=== PATIENT | female | born 1930 | race Caucasian/White ===

== ENCOUNTER 2017-11-02 19:21 | Inpatient (IN) ==
[2017-11-02 19:52] LABS: Basophils % 0.6 % (0.1-2.0); Eosinophils # 0.2 K/mm3 (0.0-0.4); Eosinophils % 2.8 % (0.1-12.0); Hematocrit 38.6 % (37.0-47.0); Hemoglobin 12.3 g/dL (12.2-16.2); Lymphocytes % 28.2 K/mm3 (10-50); Mean Corpuscular HGB Conc 31.9 g/dL (31.8-35.4); Mean Corpuscular Volume 94.1 fl (81-99); Mean Platelet Volume 7.2 fl (7.4-10.4); Monocytes # 0.5 K/mm3 (0.1-1.0); Monocytes % 7.4 % (1.7-9.3); Neutrophils # 4.4 K/mm3 (1.8-7.8); Platelet Count 147 K/mm3 (142-424); Red Cell Distribution Width 13.5 % (11.5-17.5); White Blood Count 7.1 K/mm3 (4.8-10.8)
[2017-11-02 20:00] LABS: Albumin Level 3.8 gm/dL (3.4-5.0); Albumin/Globulin Ratio 1.2 (1.1-1.8); Bilirubin,Total 0.2 mg/dL (0.2-1.0); Calcium 8.7 mg/dL (8.5-10.1); Globulin 3.1 gm/dl (1.3-3.2); Total Protein,Serum 6.9 gm/dL (6.4-8.2)
--- NOTE | 2017-11-02 21:14 | Emergency Department Note ---
ED Disposition Clinical Impression: Hip fx Qualifiers: Encounter type: initial encounter Fracture type: closed Laterality: left Qualified Code(s): S72.002A - Fracture of unspecified part of neck of left femur, initial encounter for closed fracture COPD (chronic obstructive pulmonary disease) Qualifiers: COPD type: unspecified COPD Qualified Code(s): J44.9 - Chronic obstructive pulmonary disease, unspecified Fall Qualifiers: Encounter type: initial encounter Qualified Code(s): W19.XXXA - Unspecified fall, initial encounter Hypothyroidism Qualifiers: Hypothyroidism type: acquired Qualified Code(s): E03.9 - Hypothyroidism, unspecified Disposition: Admitted As Inpatient Condition on Discharge: Good - Critical Care Critical Care Time: No Attestation: On 11/02/17, the high probability of a clinically significant, sudden or life threatening deterioration of the following system(s) required my full and direct attention, intervention and personal management. The time I documented below is in addition to time spent performing reported procedures but includes the following listed in this critical care notation. Medical Decision Making - Medical Records Medical records reviewed: Yes: I reviewed the patient's medical records. - Reg Inquiry Pt receiving controlled substance: No Vital Signs: 11/02/17 19:22 11/02/17 20:00 11/02/17 20:55 Temperature 98.9 F 97.9 F 97.5 F L Temperature Source Oral Oral Oral Pulse Rate [Right Brachial] 78 84 83 Respiratory Rate 18 16 18 Blood Pressure [Right Arm] 145/95 121/79 137/74 Blood Pressure Mean [Right Arm] 111 93 95 Blood Pressure Source [Right Arm] Automatic Cuff Blood Pressure Position [Right Arm] Supine 02 Sat by Pulse Oximetry 100 98 96 Oxygen Delivery Method Nasal Cannula Oxygen Flow Rate (LPM) 2 - Lab Data Lab results reviewed: Yes: I reviewed the patient's lab results. Lab Results 11/02/17 19:20: WBC 7.1, RBC 4.10 L, Hgb 12.3, Hct 38.6, MCV 94.1, MCH 30.0, MCHC 31.9, RDW 13.5, Plt Count 147, MPV 7.2 L, Neut % (Auto) 61.0, Lymph % (Auto) 28.2, [place] % (Auto) 7.4, Eos % (Auto) 2.8, Baso % (Auto) 0.6, Neut # (Auto) 4.4, Lymph # (Auto) 2.0, [place] # (Auto) 0.5, Eos # (Auto) 0.2, Baso # (Auto) 0.0 11/02/17 19:20: Sodium 143, Potassium 4.0, Chloride 103, Carbon Dioxide 37 H, Anion Gap 7.0, BUN 16, Creatinine 0.77, Estimated Creat Clear 31, Estimated GFR 71, Est GFR ( Amer) 86, Glucose 123 H, Calcium 8.7, Total Bilirubin 0.2, AST 23, ALT 22, Alkaline Phosphatase 102, Total Protein 6.9, Albumin 3.8, Globulin 3.1, Albumin/Globulin Ratio 1.2 Result diagrams: 11/02/17 19:20 11/02/17 19:20 Orders (Tests/Meds): ED MEDICATIONS Discontinued Medications Generic Name Dose Route Start Last Admin Trade Name Freq PRN Reason Stop Dose Admin Sodium Chloride 1,000 mls @ 999 mls/hr 11/02/17 19:45 11/02/17 19:48 Sod Chlor 0.9% 1000ml Bag IV 11/02/17 20:45 999 mls/hr .Q1H1M CARLOS Administration Ketorolac Tromethamine 30 mg 11/02/17 19:45 11/02/17 19:48 Toradol 30mg/Ml Vial IV 11/02/17 19:46 30 mg ONCE ONE Administration Morphine Sulfate 2 mg 11/02/17 21:03 11/02/17 20:55 Morphine 2mg/Ml Syringe IV 11/02/17 21:04 2 mg ONCE ONE Administration ORDERS Category Date Time Status CT cervical spine wo con Stat Cat Scan 11/02/17 19:[address] head/brain wo con Stat Cat Scan 11/02/17 19:34 Taken XR chest AP Stat Exams 11/02/17 19:34 Taken XR femur LT 2V Stat Exams 11/02/17 19:34 Taken XR hip LT 2-3V w/pelvis Stat Exams 11/02/17 19:34 Taken 12-lead EKG Request [ECG Request by /Anil] Stat Y 11/02/17 20:46 Ordered - Radiology Data #1 Image(s): Chest, Pelvis, Hip Image Reviewed: Yes I discussed the image results w/the radiologist Preliminary Findings: Abnormal (lt hip fx ) - CT Data CT Scan: Head, C-Spine Time Received: 21:[address] Reviewed: Yes: I have viewed the radiologist's interpretation Preliminary Findings: No Fracture Seen - ECG Data Tracing #1 I reviewed this ECG and interpreted as documented below: Normal Sinus Rhythm: Yes Ischemic changes: non-specific ST-T wave changes - Physician Consults Physician Consulted: hawa Reason -: Pt condition Additional Consult: waqar Reason -: Admission Fall HPI - General Chief Complaint: Fall Stated Complaint: fall Time Seen by Provider: 11/02/17 20:00 Mode of Arrival: EMS Source of Information: Patient, Relative, EMS, Medical Record Limitations: No Limitations Description of Symptoms (Recalled from ER Triage Doc. by RN): FELL AT HOME OUTSIDE. REPORTS LEFT HIP PAIN. SKIN TEARS NOTED TO BILATERAL ARMS. - History of Present Illness HPI Narrative: pt with fall on wet surface with hip pain but no loc and no syncope MD complaint: fall Onset (ago): hour(s) Fall from: walking Fall witnessed: yes, by family Place fall occurred: home Loss of consciousness: none Prolonged down time: no Symptoms prior to fall: none Context: tripped/slipped Location of injury: head, neck, pelvis Location of injury - extremities: Left: thigh Severity: moderate Associated symptoms (after fall): unable to walk - Related Data Home Medications Medication Instructions Recorded Confirmed ALPRAZolam [Xanax 0.5mg tab] 0.5 mg PO TIDP PRN 03/16/17 11/02/17 Aspirin [Aspirin 325mg Tab] 325 mg PO DAILY 03/16/17 11/02/17 Budesonide 1 inh PO BID 03/16/17 11/02/17 Furosemide [Furosemide 20mg Tab] 20 mg PO DAILY 03/16/17 11/02/17 Ipratropium/Albuterol Sulfate 1 inh PO Q4HP PRN 03/16/17 11/02/17 [Albut-Ipratropium 2.5mg-0.5mg/3 ml] Levothyroxine Sodium 100 mg PO DAILY 03/16/17 11/02/17 [Levothyroxine 100mcg (0.1MG) Tab] Methenamine/Sodium Salicylate 1 each PO DAILY PRN 03/16/17 11/02/17 [Cystex Plus Tablet] Alendronate Sodium 35 mg PO WEEKLY 03/17/17 11/02/17 Metoprolol Succinate 50 mg PO DAILY 03/17/17 11/02/17 Azithromycin [Azithromycin 500mg 500 mg PO QODHS 11/02/17 11/02/17 Tab] Tiotropium Br/Olodaterol HCl 4 gm IH BID 11/02/17 11/02/17 [Stiolto Respimat Inhal [place]] Allergies Allergy/AdvReac Type Severity Reaction Status Date / Time Penicillins [PENICILLINS] Allergy Severe Anaphylaxis Verified 03/18/17 08:37 ceftriaxone Allergy Intermediate Gastrointestinal Verified 03/18/17 08:37 Upset [facility] History I have reviewed the patient's past medical history: Yes Medical History: Denies:: Cancer, Diabetes Mellitus Type 1, Diabetes Mellitus Type 2, MRSA Other Medical History: Reports: Liver Disease (GALLBLADDER REMOVED) Comment: hypothyroidism, HTN, COPD, anxiety, freq UTIs, edema, CKD, osteoporosis Laterality Cases: Bilateral: Tonsillectomy Other Surgeries: Yes: Tubal Ligation Amputation: No Fractures: No Comment: elen - Social History Smoking Status: Current every day smoker Tobacco Type: e-cigarettes # Packs/Day (cigarettes): 1 #Yrs smoked (if former smoker): 70 Alcohol Intake: never Alcohol Intake Frequency:: holidays/special occasions only Occupational Status: retired - Psychiatric History Expresses thoughts of harming self/others: None Suicide Plan Description: No Plan Family Hx:: Stroke ROS Obtained: Yes All systems reviewed & no additional complaints - Constitutional Constitutional: Denies fever(s) - Eyes Eyes: Denies blurry vision - ENT Ears, Nose, Mouth, and Throat: Denies neck pain - Cardiovascular Cardiovascular: Denies chest pain - Respiratory Respiratory: No cough - Gastrointestinal Gastrointestingal: Denies: abdominal pain - Genitourinary Female Genitourinary: Denies hematuria - Musculoskeletal Musculoskeletal: Reports as per HPI, Reports joint pain, Reports limited range of motion, Reports neck pain - Integumentary/Breasts Skin/Breast: Denies rash - Neurologic Neurologic: Reports headache(s), Denies seizure-like activity Physical Exam - General General appearance: alert - Head Head exam: normocephalic - Eye Eye exam: Present: PERRL, EOMI - ENT ENT exam: Present: mucous membranes dry - Neck Neck exam: Present: trachea midline - Respiratory Respiratory exam: Absent: respiratory distress - Cardiovascular Cardiovascular exam: Present: regular rate, systolic murmur, +S4 - Abdominal Exam Abdominal exam: Present: soft - Extremities Exam Extremities exam: Present: tenderness - Expanded Lower Extremity Exam Left Hip/Pelvis exam: Present: tenderness, pelvis stable, pain on hip/pelvis palpation - Neurological Exam Neurological exam: Present: alert, CN II-XII intact - Psychiatric Psychiatric exam: Present: normal affect - Skin Skin exam: Present: other (skin tear bilat upper ext )
[2017-11-02 21:45] LABS: Microscopic, Urine URINE MICROSCOPIC (MICROSCOPIC)
[2017-11-02 21:56] LABS: Appearance,Urine CLEAR (Clear); Bacteria,Urine Trace /lpf; Bilirubin,Urine Negative (Negative); Blood, Urine Negative (Negative); Color,Urine YELLOW (Yellow); Glucose,Urine (UA) Negative (Negative); Ketones,Urine Negative (Negative); Leukocyte Esterase,Urine Negative (Negative); PH,Urine 8.5 (5.0-8.5); Protein,Urine Negative (Negative); Squamous Epithelial Cell,Urine Occasional #/hpf (0-5); Urobilinogen,Urine 0.2 EU/dl (0.2)
--- NOTE | 2017-11-03 07:37 | Pharmacy Consult Notes ---
[facility] Pharmacy VTE Monitoring - Patient Demographics Admission date: 11/02/17 Report Date: 11/03/17 Time: 07:37 Allergies/Adverse Reactions: Patient Allergies Penicillins [PENICILLINS] Allergy (Severe, Verified 03/18/17 08:37) Anaphylaxis ceftriaxone Allergy (Intermediate, Verified 03/18/17 08:37) Gastrointestinal Upset Height: 1.63 m Weight: 48.591 kg Patient Problems: Current Active Problems Hip fx (Acute) COPD (chronic obstructive pulmonary disease) (Acute) Fall (Acute) Hypothyroidism (Acute) - VTE Risk Labs: VTE Related Lab Results Hgb 12.3 g/dL (12.2-16.2) 11/02/17 19:20 Hct 38.6 % (37.0-47.0) 11/02/17 19:20 Plt Count 147 K/mm3 (142-424) 11/02/17 19:20 BUN 16 mg/dL (7-18) 11/02/17 19:20 Creatinine 0.77 mg/dL (0.55-1.02) 11/02/17 19:20 Estimated Creat Clear 31 mL/min (0-300) 11/02/17 19:20 Was VTE Risk Assessment Performed: Yes VTE Score: 7 VTE Risk Level: Moderate Risk Clinical Trial Participant: No - Prophylaxis VTE Prophylaxis Ordered?: Yes Types of VTE Prophylaxis: TEDS Knee High Location of Applied Device: Bilateral Lower Extremeties
[2017-11-03 07:59] LABS: Basophils % 0.5 % (0.1-2.0); Eosinophils # 0.1 K/mm3 (0.0-0.4); Eosinophils % 1.4 % (0.1-12.0); Hematocrit 34.6 % (37.0-47.0); Lymphocytes # 1.3 K/mm3 (0.7-4.5); Lymphocytes % 15.7 K/mm3 (10-50); Mean Corpuscular HGB Conc 31.3 g/dL (31.8-35.4); Mean Corpuscular Hemoglobin 29.6 pg (27.0-31.2); Mean Corpuscular Volume 94.6 fl (81-99); Mean Platelet Volume 7.3 fl (7.4-10.4); Monocytes # 0.8 K/mm3 (0.1-1.0); Monocytes % 9.7 % (1.7-9.3); Neutrophils # 5.9 K/mm3 (1.8-7.8); Neutrophils % 72.7 % (37.0-80.0); Platelet Count 104 K/mm3 (142-424); Red Blood Count 3.66 M/mm3 (4.20-5.40); Red Cell Distribution Width 13.6 % (11.5-17.5); White Blood Count 8.1 K/mm3 (4.8-10.8)
[2017-11-03 08:04] LABS: Anion Gap 6.4 mEq/L (5-15); Calcium 8.4 mg/dL (8.5-10.1); Potassium 4.4 mmoL/L (3.5-5.1)
--- NOTE | 2017-11-03 08:13 | History & Physical Report ---
*Admission Date: 11/02/17 *Chief complaint: fall *History of present illness: Ms. Lopez is a 87-year-old female with history of hypothyroidism, osteoporosis, essential hypertension, end-stage COPD/chronic respiratory failure, and cachexia, who presents with a fall sustained at home yesterday with subsequent left hip fracture. Reports being at home, going to a visitation for her for in the past away. She was on her way into her house and was wearing high heels when they got stuck in a gap between 2 boards causing her to lose balance and fall on her side. She is unable to bear weight and had significant pain thereafter. Presented to the ER and found to have left-sided hip fracture. Denies any other injuries. Shortness of breath at baseline, denies chest pain. No loss of consciousness, no head trauma. Patient admitted to medicine for orthopedic evaluation and consideration of fixation. Requesting nerve block, spinal anesthesia versus general anesthesia. [facility] History I have reviewed the patient's past medical history: Yes Medical History: Denies:: Cancer, Diabetes Mellitus Type 1, Diabetes Mellitus Type 2, MRSA Other Medical History: Reports: Liver Disease (GALLBLADDER REMOVED) Laterality Cases: Bilateral: Tonsillectomy Other Surgeries: Yes: Tubal Ligation Amputation: No Fractures: No - *Social History Educational Level: Completed High School Smoking Status: Former smoker Tobacco Type: e-cigarettes # Packs/Day (cigarettes): 1 #Yrs smoked (if former smoker): 70 Alcohol Intake: never Alcohol Intake Frequency:: holidays/special occasions only Occupational Status: retired Housing: house - Psychiatric History Expresses thoughts of harming self/others: None Suicide Plan Description: No Plan *Family Hx:: Stroke Review of Systems - Review of Systems Review of systems:: pertinent systems reviewed and negative unless documented below - *Neurologic Reports headache(s), Denies seizure-like activity Meds Home Medications Medication Instructions Recorded Confirmed Type ALPRAZolam [Xanax 0.5mg tab] 0.5 mg PO TIDP PRN 03/16/17 11/02/17 History Aspirin [Aspirin 325mg Tab] 325 mg PO DAILY 03/16/17 11/02/17 History Budesonide 0.25 mg PO BID 03/16/17 11/03/17 History Furosemide [Furosemide 20mg Tab] 20 mg PO DAILY 03/16/17 11/02/17 History Ipratropium/Albuterol Sulfate 1 inh PO Q4HP PRN 03/16/17 11/02/17 History [Albut-Ipratropium 2.5mg-0.5mg/3 ml] Levothyroxine Sodium 100 mcg PO DAILY 03/16/17 11/03/17 History [Levothyroxine 100mcg (0.1MG) Tab] Methenamine/Sodium Salicylate 1 each PO DAILY PRN 03/16/17 11/02/17 History [Cystex Plus Tablet] Alendronate Sodium 35 mg PO WEEKLY 03/17/17 11/02/17 History Metoprolol Succinate 50 mg PO DAILY 03/17/17 11/02/17 History Azithromycin [Azithromycin 500mg 500 mg PO QODHS 11/02/17 11/02/17 History Tab] Tiotropium Br/Olodaterol HCl 4 gm IH BID 11/02/17 11/02/17 History [Stiolto Respimat Inhal [place]] Ipratropium/Albuterol Sulfate 3 ml IH Q4HP PRN 11/03/17 11/03/17 History [Iprat-Albut 0.5-3(2.5) mg/3 ml] Allergies Allergy/AdvReac Type Severity Reaction Status Date / Time Penicillins [PENICILLINS] Allergy Severe Anaphylaxis Verified 03/18/17 08:37 ceftriaxone Allergy Intermediate Gastrointestinal Verified 03/18/17 08:37 Upset Exam Vital signs and Labs for Last 24 Hours: Temp Pulse Resp BP Pulse Ox 97.6 F 76 14 107/60 94 L 11/03/17 04:00 11/03/17 06:25 11/03/17 04:00 11/03/17 04:00 11/03/17 06:25 Laboratory Results - last 24 hr 11/02/17 19:20: WBC 7.1, RBC 4.10 L, Hgb 12.3, Hct 38.6, MCV 94.1, MCH 30.0, MCHC 31.9, RDW 13.5, Plt Count 147, MPV 7.2 L, Neut % (Auto) 61.0, Lymph % (Auto) 28.2, [place] % (Auto) 7.4, Eos % (Auto) 2.8, Baso % (Auto) 0.6, Neut # (Auto) 4.4, Lymph # (Auto) 2.0, [place] # (Auto) 0.5, Eos # (Auto) 0.2, Baso # (Auto) 0.0 11/02/17 19:20: Sodium 143, Potassium 4.0, Chloride 103, Carbon Dioxide 37 H, Anion Gap 7.0, BUN 16, Creatinine 0.77, Estimated Creat Clear 31, Estimated GFR 71, Est GFR ( Amer) 86, Glucose 123 H, Calcium 8.7, Total Bilirubin 0.2, AST 23, ALT 22, Alkaline Phosphatase 102, Total Protein 6.9, Albumin 3.8, Globulin 3.1, Albumin/Globulin Ratio 1.2 11/02/17 21:40: Urine Color Yellow, Urine Appearance Clear, Urine pH 8.5, Ur Specific [place] 1.010, Urine Protein Negative, Urine Glucose (UA) Negative, Urine Ketones Negative, Urine Blood Negative, Urine Nitrate Negative, Urine Bilirubin Negative, Urine Urobilinogen 0.2, Ur Leukocyte Esterase Negative, Urine RBC 5-10, Urine WBC None, Ur Squamous Epith Cells Occasional, Urine Bacteria Trace 11/03/17 07:06: WBC 8.1, RBC 3.66 L, Hct 34.6 L, MCV 94.6, MCH 29.6, MCHC 31.3 L , RDW 13.6, Plt Count 104 L D, MPV 7.3 L, Neut % (Auto) 72.7, Lymph % (Auto) 15.7, [place] % (Auto) 9.7 H, Eos % (Auto) 1.4, Baso % (Auto) 0.5, Neut # (Auto) 5.9, Lymph # (Auto) 1.3, [place] # (Auto) 0.8, Eos # (Auto) 0.1, Baso # (Auto) 0.0 11/03/17 07:06: Sodium 144, Potassium 4.4, Chloride 107, Carbon Dioxide 35 H, Anion Gap 6.4, BUN 16, Creatinine 0.64, Estimated Creat Clear 31, Estimated GFR 88, Est GFR ( Amer) 106 D, Glucose 85 D, Calcium 8.4 L 11/03/17 07:06: Magnesium 1.9 I & O for Last 24 hours: Intake & Output 10/31/17 11/01/17 11/02/1711/03/18 23:59 23:59 23:59 23:59 Intake Total 1000 / 1000 Output Total 175 / 175 125 / 125 Balance 825 / 825 -125 / -125 Weight 48.591 kg 48.591 kg - *Routine HEENT Exam Head: Present: atraumatic Eye: Present: EOMI, PERRL ENT: Present: mucous membranes moist Comments: Nasal cannula in place, bitemporal wasting present. - *Routine Neck Exam Present: supple, full ROM - *Routine Respiratory Exam Present: accessory muscle use, prolonged expiratory phase, distant breath sounds, diminished air movement. Absent: CTA bilaterally, rales, wheezes, crackles - *Routine Cardiovascular Exam Present: RRR, Normal S1, Normal S2. Absent: murmur - *Routine Abdominal Exam Present: soft, normoactive bowel sounds. Absent: tenderness - *Routine Rectal Exam Patient deferred: visual exam - *Routine Exam Patient deferred: external exam - *Routine Extremities Exam Absent: cyanosis, clubbing, edema Comments: Left leg externally rotated with length discrepancy compared to right, palpation along left lateral hip - *Routine Skin Exam Present: intact. Absent: cyanosis, erythema - *Routine Neurological Exam Present: alert, oriented X3, CN II-XII intact. 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 -Continue nebulizers as needed (3) Fall Current visit: Yes Status: Acute Qualifiers: Encounter type: initial encounter Qualified Code(s): W19.XXXA - Unspecified fall, initial encounter Category: Medical Code(s): W19.XXXA - Unspecified fall, initial encounter (4) Hip fx Current visit: Yes Status: Acute Qualifiers: Encounter type: initial encounter Fracture type: closed Laterality: left Qualified Code(s): S72.002A - Fracture of unspecified part of neck of left femur, initial encounter for closed fracture Category: Medical Code(s): S72.009A - Fracture of unspecified part of neck of unspecified femur, initial encounter for closed fracture Consulted orthopedics fixation planned for later today (5) Hypothyroidism Current visit: Yes Status: Chronic Qualifiers: Hypothyroidism type: acquired Qualified Code(s): E03.9 - Hypothyroidism, unspecified Category: Medical Code(s): E03.9 - Hypothyroidism, unspecified Continue home levothyroxine - Assessment and plan all Dx Assessment and Plan for all problems:: Pre-Operative risk stratification -Ms. Lopez is an elevated risk patient for an intermediate risk operation. Elevated risk due to non-quantifiable metastases, CAD equivalent (dyspnea with exertion). Recommend EKG and TTE prior to surgical intervention. Hold diuretics, continue any beta-blockers, may benefit from consideration of epidural anesthesia and spinal versus sedation and intubation giving underlying end-stage COPD and oxygen dependency. -Patient optimized for surgical management. Postsurgical VT E - we will discuss with orthopedics, patient would benefit from either 30 mg Lovenox twice daily for 5 weeks or consideration of short course of Lovenox with high-dose aspirin for total therapy of 5 weeks. Pending discussion with orthopedics
--- NOTE | 2017-11-03 10:04 | Consult Report ---
*Admission Date: 11/02/17 *Chief complaint: Left hip pain *History of present illness: Patient is a pleasant 87-year-old female admitted to the hospital last night with a diagnosis of left hip fracture. She says she tripped and fell down while getting into the house after coming back from [place] yesterday evening. Following the fall patient was brought to the ER where evaluation confirmed a displaced left hip fracture. She says she was unable to get up and walk after the fall. Patient denies any dizziness, headache, chest or neck pain. She says her pain is well controlled at rest but trying to move the LEFT leg causes hip pain. She denies loss of consciousness, chest pain and shortness of breath. She has history of end-stage COPD. She denies any other injuries. She lives by herself and usually walks independently and occasionally uses a cane. Review of Systems - Review of Systems Review of systems:: pertinent systems reviewed and negative unless documented below - Constitutional Reports fever(s) - Eyes Reports blurry vision Comments: History of macular degeneration - *Neurologic Reports headache(s), Denies seizure-like activity [facility] History I have reviewed the patient's past medical history: Yes Medical History: Denies:: Cancer, Diabetes Mellitus Type 1, Diabetes Mellitus Type 2, MRSA Other Medical History: Reports: Liver Disease (GALLBLADDER REMOVED) Laterality Cases: Bilateral: Tonsillectomy Other Surgeries: Yes: Tubal Ligation Amputation: No Fractures: No - *Social History Educational Level: Completed High School Smoking Status: Former smoker Tobacco Type: e-cigarettes # Packs/Day (cigarettes): 1 #Yrs smoked (if former smoker): 70 Alcohol Intake: never Alcohol Intake Frequency:: holidays/special occasions only Occupational Status: retired Housing: house - Psychiatric History Expresses thoughts of harming self/others: None Suicide Plan Description: No Plan *Family Hx:: Stroke Meds Home Medications Medication Instructions Recorded Confirmed Type ALPRAZolam [Xanax 0.5mg tab] 0.5 mg PO TIDP PRN 03/16/17 11/02/17 History Aspirin [Aspirin 325mg Tab] 325 mg PO DAILY 03/16/17 11/02/17 History Budesonide 0.25 mg PO BID 03/16/17 11/03/17 History Furosemide [Furosemide 20mg Tab] 20 mg PO DAILY 03/16/17 11/02/17 History Ipratropium/Albuterol Sulfate 1 inh PO Q4HP PRN 03/16/17 11/02/17 History [Albut-Ipratropium 2.5mg-0.5mg/3 ml] Levothyroxine Sodium 100 mcg PO DAILY 03/16/17 11/03/17 History [Levothyroxine 100mcg (0.1MG) Tab] Methenamine/Sodium Salicylate 1 each PO DAILY PRN 03/16/17 11/02/17 History [Cystex Plus Tablet] Alendronate Sodium 35 mg PO WEEKLY 03/17/17 11/02/17 History Metoprolol Succinate 50 mg PO DAILY 03/17/17 11/02/17 History Azithromycin [Azithromycin 500mg 500 mg PO QODHS 11/02/17 11/02/17 History Tab] Tiotropium Br/Olodaterol HCl 4 gm IH BID 11/02/17 11/02/17 History [Stiolto Respimat Inhal Zullinger] Ipratropium/Albuterol Sulfate 3 ml IH Q4HP PRN 11/03/17 11/03/17 History [Iprat-Albut 0.5-3(2.5) mg/3 ml] Allergies Allergy/AdvReac Type Severity Reaction Status Date / Time Penicillins [PENICILLINS] Allergy Severe Anaphylaxis Verified 03/18/17 08:37 ceftriaxone Allergy Intermediate Gastrointestinal Verified 03/18/17 08:37 Upset Exam Vital signs and Labs for Last 24 Hours: Temp Pulse Resp BP Pulse Ox 98.5 F 78 18 137/89 95 11/03/17 08:00 11/03/17 08:00 11/03/17 08:00 11/03/17 08:00 11/03/17 08:00 Laboratory Results - last 24 hr 11/02/17 19:20: WBC 7.1, RBC 4.10 L, Hgb 12.3, Hct 38.6, MCV 94.1, MCH 30.0, MCHC 31.9, RDW 13.5, Plt Count 147, MPV 7.2 L, Neut % (Auto) 61.0, Lymph % (Auto) 28.2, [place] % (Auto) 7.4, Eos % (Auto) 2.8, Baso % (Auto) 0.6, Neut # (Auto) 4.4, Lymph # (Auto) 2.0, [place] # (Auto) 0.5, Eos # (Auto) 0.2, Baso # (Au to) 0.0 11/02/17 19:20: Sodium 143, Potassium 4.0, Chloride 103, Carbon Dioxide 37 H, Anion Gap 7.0, BUN 16, Creatinine 0.77, Estimated Creat Clear 31, Estimated GFR 71, Est GFR ( Amer) 86, Glucose 123 H, Calcium 8.7, Total Bilirubin 0.2, AST 23, ALT 22, Alkaline Phosphatase 102, Total Protein 6.9, Albumin 3.8, Globu carmine 3.1, Albumin/Globulin Ratio 1.2 11/02/17 21:40: Urine Color Yellow, Urine Appearance Clear, Urine pH 8.5, Ur Specific [place] 1.010, Urine Protein Negative, Urine Glucose (UA) Negative, Urine Ketones Negative, Urine Blood Negative, Urine Nitrate Negative, Urine Bilirubin Negative, Urine Urobilinogen 0.2, Ur Leukocyte Esterase Negative, Urine RBC 5-10, Urine WBC None, Ur Squamous Epith Cells Occasional, Urine Bacteria Trace 11/03/17 07:06: WBC 8.1, RBC 3.66 L, Hgb 11.0 L D, Hct 34.6 L, MCV 94.6, MCH 29.6, MCHC 31.3 L, RDW 13.6, Plt Count 104 L D, MPV 7.3 L, Neut % (Auto) 72.7, Lymph % (Auto) 15.7, [place] % (Auto) 9.7 H, Eos % (Auto) 1.4, Baso % (Auto) 0.5, Neut # (Auto) 5.9, Lymph # (Auto) 1.3, [place] # (Auto) 0.8, Eos # (Auto) 0.1, Baso # (Auto) 0.0 11/03/17 07:06: Sodium 144, Potassium 4.4, Chloride 107, Carbon Dioxide 35 H, Anion Gap 6.4, BUN 16, Creatinine 0.64, Estimated Creat Clear 31, Estimated GFR 88, Est GFR ( Amer) 106 D, Glucose 85 D, Calcium 8.4 L 11/03/17 07:06: Magnesium 1.9 I & O for Last 24 hours: Intake & Output 10/31/17 11/01/17 11/02/17 11/03/17 11:59 11:59 11:59 11:59 Intake Total 1600 / 1600 Output Total 300 / 300 Balance 1300 / 1300 Weight 114 lb 6 oz - Constitutional no acute distress, thin, cooperative - *Routine HEENT Exam Head: Present: normocephalic, atraumatic Eye: Present: EOMI, PERRL ENT: Present: mucous membranes moist - *Routine Neck Exam Present: supple, full ROM, trachea midline. Absent: lymphadenopathy - *Routine Respiratory Exam Present: CTA bilaterally. Absent: respiratory distress - *Routine Cardiovascular Exam Present: RRR, Normal S1, Normal S2 - *Routine Abdominal Exam Present: soft, normoactive bowel sounds. Absent: organomegaly - *Routine Extremities Exam Comments: On examination of her lower extremities, there is shortening of the LEFT leg and the foot is externally rotated. On examination of the LEFT hip the skin is normal. No rashes or lesions noted. She is tender over the LEFT hip. Any attempted movements of the LEFT hip are painful. Thigh and calf are soft and nontender. Dorsalis pedis and posterior tibial pulses are palpable 1+ bilaterall y. Sensation is grossly intact. She has good range of foot, ankle and toe movements. Imaging: X-rays of her pelvis AP view, LEFT hip AP and lateral views and LEFT femur AP and lateral views are showing a comminuted, displaced, unstable intertrochanteric fracture of the LEFT proximal femur. Hip joint is fairly well- preserved. Her distal femur appears normal. Significant osteopenia noted. - Routine Back/Spine/Pelvis Exam Back/Spine: Present: full ROM - *Routine Skin Exam Present: warm, normal turgor Comments: Superficial skin lacerations over the the forearms bilaterally - *Routine Neurological Exam Present: alert, oriented X3, CN II-XII intact, sensory deficit, normal speech - Routine Psychiatric Exam Present: normal affect, cooperative Results - Labs Result Diagrams: 11/03/17 07:06 11/03/17 07:06 Labs: Abnormal lab results 11/02/17 11/02/17 11/03/17 Range/Units 19:20 19:20 07:06 RBC 4.10 L 3.66 L (4.20-5.40) M/mm3 Hgb 11.0 L D (12.2-16.2) g/dL Hct 34.6 L (37.0-47.0) % MCHC 31.3 L (31.8-35.4) g/dL Plt Count 104 L D (142-424) K/mm3 MPV 7.2 L 7.3 L (7.4-10.4) fl [place] % (Auto) 9.7 H (1.7-9.3) % Carbon Dioxide 37 H (21.0-32.0) mmol/L Glucose 123 H (74-106) mg/dL Calcium (8.5-10.1) mg/dL 11/03/17 Range/Units 07:06 RBC (4.20-5.40) M/mm3 Hgb (12.2-16.2) g/dL Hct (37.0-47.0) % MCHC (31.8-35.4) g/dL Plt Count (142-424) K/mm3 MPV (7.4-10.4) fl [place] % (Auto) (1.7-9.3) % Carbon Dioxide 35 H (21.0-32.0) mmol/L Glucose (74-106) mg/dL Calcium 8.4 L (8.5-10.1) mg/dL H & H 18 11/03/17 Range/Units 19:20 07:06 Hgb 12.3 11.0 L D (12.2-16.2) g/dL Hct 38.6 34.6 L (37.0-47.0) % All other labs normal. Assessment and Plan (1) Hip fx Current visit: Yes Status: Acute Qualifiers: Encounter type: initial encounter Fracture type: closed Laterality: left Qualified Code(s): S72.002A - Fracture of unspecified part of neck of left femur, initial encounter for closed fracture Category: Medical Code(s): S72.009A - Fracture of unspecified part of neck of unspecified femur, initial encounter for closed fracture I reviewed the clinical and x-ray findings with the patient and her family who were with her in the room (son, [id number] and granddaughter; her granddaughter is a RN at [employer]). I have discussed the diagnosis and management options in detail including both nonsurgical and surg ical. I have recommended surgical remediation in the form of a femoral nailing (cephalo-medullary nailing). I explained the procedure, risks and benefits, alternatives and the expected postoperative course. I explained to the patient and her daughter with drawings of the fracture and the proposed surgical procedure. The complications discussed include but are not limited to infection, bleeding, injury to nerves and blood vessels, DVT, PE, screw cut-out/implant failure, loss of fixation, nonunion, malunion/malrotation, osteonecrosis of the femoral head, femoral shaft fracture, painful hardware, heterotopic ossification, stiffness, weakness, incomplete relief of pain, incomplete return of function or motion and the likely need for further surgery in future, and anesthetic/medical complications including heart attack, stroke, transfusion reaction or . We discussed how any of these events can be devastating. We have discussed nonsurgical alternatives as well. We also discussed the pos toperative course including the rehab and physical therapy required. She lives by herself and therefore she may need to go to a short-term rehab place after surgery. All their questions were answered and they verbalized a good understanding. We will obtain a preoperative anesthetic evaluation. The limb was marked appropriately and initialed by me. I have recommended- Type and screen Nothing by mouth Continue IV fluids DVT prophylaxis as per protocol Analgesia as needed Consent patient for a cephalo-medullary nailing LEFT hip. 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 Continue medical management as per Dr Antoine. Thank you for the opportunity to take part in the care of this very pleasant patient.
--- NOTE | 2017-11-03 15:23 | Progress Note ---
[facility] Anesthesia Checklist - Patient Identification Patient Identification: Arm Band, Verbal (Name & ) - Structural Data Admitted From: Inpatient Planned Operative Procedure/s: Cephalo-medullary nailing left femur Consent for Planned Operative Procedure(s) Verified: Yes Verified Documents: Surgical Consent, History and Physical, Cardiac Clearance - NPO Status Verified Time NPO: 00:00 - Additional verifications Anesthesia Reactions: No - Airway Assessment C-Spine Mobility Assessed: Yes (Limited neck ROM) TMJ Mobility Assessed: Yes Dentition: Edentulous - Neurological Assessment Level of Consciousness: Awake Hx Seizures: No Numbness or tingling in extremities: No - Anesthesia Plan Anesthesia Risk discussed: Yes Anesthesia Plan: Verified ASA Class: III Anesthesia Type: General [facility] History I have reviewed the patient's past medical history: Yes Medical History: Reports:: Anxiety, Congestive Heart Failure, Chronic Obstructive Pulmonary Disease (COPD), Depression, Home Oxygen, Hypertension, Renal Insufficiency Denies:: Cancer, Diabetes Mellitus Type 1, Diabetes Mellitus Type 2, MRSA Other Medical History: Reports: Hypothyroidism, Liver Disease (GALLBLADDER REMOVED), Other (macular degeneration) Laterality Cases: Bilateral: Tonsillectomy Other Surgeries: Yes: Tubal Ligation Amputation: No Fractures: No - *Social History Educational Level: Completed High School Smoking Status: Former smoker Tobacco Type: e-cigarettes # Packs/Day (cigarettes): 1 #Yrs smoked (if former smoker): 70 Alcohol Intake: never Alcohol Intake Frequency:: holidays/special occasions only Occupational Status: retired Housing: house - Psychiatric History Expresses thoughts of harming self/others: None Suicide Plan Description: No Plan *Family Hx:: Stroke
--- NOTE | 2017-11-03 18:26 | Progress Note ---
[facility] Anesthesia Record Part I Intake, IV Amount: 800 Estimated blood loss (mL): 200 Urine output (mL): 250 Blood Products used (#): none Blood Pressure: 114/67 SaO2: 95 Pulse Rate: 87 Respiratory Rate: 20 Temperature: 97.8 F Patient is:: Drowsy, Mask O2, Stable
--- NOTE | 2017-11-03 18:27 | Progress Note ---
[facility] Anesthesia Record Part II Discharge Time: 19:02 Destination: Medical Surgical Department PACU nurse assessment reviewed?: Yes Patient Condition:: Good Anesthesia Complications:: None
--- NOTE | 2017-11-03 18:53 | Operative Note ---
Date of procedure: 11/03/17 Pre-op Diagnosis:: Closed, displaced intertrochanteric fracture, left femur Post-op Diagnosis:: Same Procedure performed:: Closed reduction and cephalo-medullary nailing, left femur Surgeon:: Ridge Ramirez MD Demurrage Agent(s):: Lisa Vivar CAR TOP BOLTER:: Tyler Armstrong Anesthesia: GETA Estimated blood loss (mL): 200 Clinical Note:: Patient is a 87-year-old female who tripped and fell sustaining an injury to her left hip on 11/02/2017. Following evaluation in the emergency room where x-ray showed a displaced intertrochanteric fracture of her left proximal femur, she was admitted for further management. After evaluating her, I discussed the diagnosis and management options in detail including nonsurgical and surgical, with the patient and her family. Prior to the injury patient was active and mobile independently. She lives by herself. After a detailed discussion with the patient and her family a decision was made to fix the fracture internally with a cephalo-medullary nail. I discussed the procedure, risks and benefits, postoperative recovery and rehabilitation and the expected outcomes. The complications discussed include but are not limited to DVT, PE, infection, bleeding, injury to nerves and blood vessels, screw cut-out/implant failure, loss of fixation, nonunion, malunion/malrotation, osteonecrosis of the femoral head, femoral shaft fracture, painful hardware, heterotopic ossification, stiffness, weakness, incomplete relief of pain, incomplete return of function or motion and the likely need for further surgery in future, and anesthetic/medical complications including heart attack, stroke, transfusion reaction or . The patient and her family wished to proceed with the surgical remediation. Consent form was reviewed and signed by me. The limb was appropriately marked and initialed by me. Following appropriate preoperative workup and medical clearance, she was brought to the operating room for surgery. The surgery is indicated to reduce and stabilize the fracture, relieve pain and improve function. Operative findings:: Comminuted, displaced and unstable intertrochanteric fracture left proximal femur as noted on the preoperative x-rays. The fracture was well reduced with closed manipulation prior to fixation. Operative note:: Following appropriate preoperative workup and [medical/cardiac] clearance, patient was brought to the operating room and a [spinal/general] anesthesia was administered. Patient was then positioned supine on the fracture table and all the bony prominences were appropriately padded. The [RIGHT] foot was secured in the footplate and the footplate was attached to the fracture table. The [LEFT] leg was placed out of the way in a leg coleman. Under fluoroscopic guidance the fracture was reduced by traction and satisfactory reduction was obtained. The reduction was confirmed on both AP and lateral views. The [RIGHT] hip and thigh were then prepped and draped in the usual sterile fashion. Administration of prophylactic antibiotics was confirmed with the anesthetic team [(2 g of IV Ancef was administered)]. A preprocedure timeout was performed as per the hospital protocol. After marking the level of the greater trochanter on the skin under fluoroscopy, a skin incision was made proximal to the greater trochanter in line with the femoral shaft. The dissection was then carried through the subcutaneous tissue. The tensor fascia muscle was split in line with the fibers. This provided access to the tip of the greater trochanter. Under fluoroscopic guidance a guidewire was placed at the tip of the greater trochanter, the position was confirmed on both fluoroscopic views and advanced into the proximal femur. The proximal segment was then reamed over the guidewire and the guidewire was exchanged for a ball-tipped guidewire which was advanced into the distal femur. The position of the guidewire was confirmed in both AP and lateral views. [Then sequential reaming was performed over the guidewire up to 12.5 mm reamer. The required nail length was measured. A 125/130 degree angle, 11 mm diameter, long (360 mm) RIGHT Herman Gamma 3 nail was selected.] The selected nail was attached to the proximal jig and the nail was then inserted into the femur under fluoroscopic guidance. After seating the nail to the appropriate level, I proceeded to introduce the lag screw. [We used the [employer] computer navigation system for placement of the lag screw.] The lag screw sheath assembly was placed through the appropriate hole in the jig and locked in place. Then a 1 inch skin incision was made over the lateral thigh at this level. The incision was deepened through soft tissue and the fascia jose and the muscle was split. The trocar was removed and a guide pin was placed into the femoral head under fluoroscopic control. After confirming satisfactory placement of the guidepin in both AP and lateral fluoroscopic views the length was measured. [A 90 mm lag screw was then selected. Drilling was performed over the guidewire for the lag screw. The lag screw] was then introduced over the guidewire and advanced to an appropriate level. The traction was reduced and fracture site compressed. The guide pin and sheath were then removed. The lag screw was secured in place with the set screw. [After final seating of the lag screw the tip apex distance was 14 mm. I then proceeded to perform the distal locking through the dynamic hole- we used the [employer] Gamma nail distal locking jig for this. After appropriately lining the drill sleeve and nail under fluoroscopic guidance, the drill sleeve was placed through the dynamic hole and a 1 cm skin incision was made. Through the drill sleeve the 4.3 mm drill was introduced and the drill hole made for the distal locking screw. The screw length was measured and a 5 mm x 40 mm cortical bone screw was introduced through the dynamic locking hole.] The distal and proximal jigs were then removed and fluoroscopic screening was performed in both the AP and lateral views. The reduction and fixation were noted to be satisfactory and stable. Fluoroscopic images were obtained and stored digitally. The wounds were washed out with normal saline and hemostasis was obtained with the diathermy cautery. The wounds were then closed in layers with the 0 Vicryl, 2-0 Vicryl and [4-0 Monocryl subcuticular sutures, Dermabond and Steri- Strips/maxi to the skin. 30 mL of 0.5 percent Marcaine was injected into the skin and subcutaneous tissue around the incisions for postoperative pain relief.] Sterile dressings were applied. The foot was taken out of the foot coleman and the opposite leg out of the leg coleman and placed on the table extension. The limb lengths were noted to be equal and there was no rotational malalignment. Dorsalis pedis and posterior tibial pulses were 2+ on both sides. At the end of the procedure, swab, needle and instrument counts were correct according to the scrub team. Patient was then transferred onto the bed. Patient was then transported to the PACU in a stable condition. Patient tolerated the procedure well and there were no immediate complications. [Portable x-rays of the hip/femur AP and cross-table lateral views were obtained in the PACU and were noted to be satisfactory.] Postoperatively patient will receive [2] further doses of prophylactic antibiotics, DVT prophylaxis as per protocol and IV and oral analgesia as needed. Medical management as per [Dr. Hudson] team. Patient can be mobilized on the first postoperative day with a walker, weight bearing on the [RIGHT/LEFT] side as tolerated. [[employer] Gamma 3 long nailing system- [130] degree angle, [11] mm diameter, long ([360] mm) RIGHT Herman Gamma 3 nail, 10.5 mm x [90] mm lag screw and 5 mm x [40] mm distal locking screw. (Industry artist representative: Matheus Rodriguez/Nuno Joseph/Nick Morris from [facility])] Condition: stable Disposition: floor Specimens:: None Complications:: None
[2017-11-04 06:33] LABS: Basophils % 0.3 % (0.1-2.0); Eosinophils % 0.1 % (0.1-12.0); Lymphocytes # 0.7 K/mm3 (0.7-4.5); Lymphocytes % 8.2 K/mm3 (10-50); Mean Corpuscular HGB Conc 32.2 g/dL (31.8-35.4); Mean Corpuscular Hemoglobin 30.2 pg (27.0-31.2); Mean Corpuscular Volume 93.7 fl (81-99); Mean Platelet Volume 7.9 fl (7.4-10.4); Monocytes # 0.8 K/mm3 (0.1-1.0); Monocytes % 8.6 % (1.7-9.3); Neutrophils # 7.4 K/mm3 (1.8-7.8); Neutrophils % 82.9 % (37.0-80.0); Platelet Count 92 K/mm3 (142-424); Red Cell Distribution Width 13.8 % (11.5-17.5)
--- NOTE | 2017-11-04 07:31 | Progress Note ---
Internal Medicine - PN: Subj *Date: 11/04/17 *Time: 07:27 Interval history: Postoperative day #1 from left hip ORIF. Patient's alert. Oriented 2-a little fuzzy about the date. No complaints of pain except when she is moved about. Exam Vital signs and Labs for Last 24 Hours: Temp Pulse Resp BP Pulse Ox 97.9 F 82 18 110/51 92 L 11/04/17 04:00 11/04/17 07:09 11/04/17 04:00 11/04/17 04:00 11/04/17 07:09 Laboratory Results - last 24 hr 11/03/17 07:06: WBC 8.1, RBC 3.66 L, Hgb 11.0 L D, Hct 34.6 L, MCV 94.6, MCH 29.6, MCHC 31.3 L, RDW 13.6, Plt Count 104 L D, MPV 7.3 L, Neut % (Auto) 72.7, Lymph % (Auto) 15.7, [place] % (Auto) 9.7 H, Eos % (Auto) 1.4, Baso % (Auto) 0.5, Neut # (Auto) 5.9, Lymph # (Auto) 1.3, [place] # (Auto) 0.8, Eos # (Auto) 0.1, Baso # (Auto) 0.0 11/03/17 07:06: Sodium 144, Potassium 4.4, Chloride 107, Carbon Dioxide 35 H, Anion Gap 6.4, BUN 16, Creatinine 0.64, Estimated Creat Clear 31, Estimated GFR 88, Est GFR ( Amer) 106 D, Glucose 85 D, Calcium 8.4 L 11/03/17 07:06: Magnesium 1.9 11/03/17 09:45: Blood Type O Positive, Antibody Screen Negative I & O for Last 24 hours: Intake & Output 11/01/17 11/02/17 11/03/17 11/04/17 11:59 11:59 11:59 11:59 Intake Total 1600 / 1600 1803 / 1803 Output Total 300 / 300 450 / 450 Balance 1300 / 1300 1353 / 1353 Weight 114 lb 6 oz 123 lb 8 oz Narrative: Oropharynx edentulous but clear. No JVD. Lungs have good air movement, minimal rhonchi from her COPD but about her baseline. Heart rate regular. Abdomen soft and nontender. Able to wiggle toes on both feet, extremities are warm and well-perfused bilaterally. Assessment and Plan (1) Hip fx Current visit: Yes Status: Acute Qualifiers: Encounter type: initial encounter Fracture type: closed Laterality: left Qualified Code(s): S72.002A - Fracture of unspecified part of neck of left femur, initial encounter for closed fracture Category: Medical Code(s): S72.009A - Fracture of unspecified part of neck of unspecified femur, initial encounter for closed fracture (2) COPD (chronic obstructive pulmonary disease) Current visit: Yes Status: Chronic Qualifiers: COPD type: unspecified COPD Qualified Code(s): J44.9 - Chronic obstructive pulmonary disease, unspecified Category: Medical Code(s): J44.9 - Chronic obstructive pulmonary disease, unspecified (3) Cachexia Current visit: Yes Status: Chronic Category: Medical Code(s): R64 - Cachexia (4) Hypothyroidism Current visit: Yes Status: Chronic Qualifiers: Hypothyroidism type: acquired Qualified Code(s): E03.9 - Hypothyroidism, unspecified Category: Medical Code(s): E03.9 - Hypothyroidism, unspecified (5) Hip fracture, left Current visit: Yes Status: Acute Category: Medical Code(s): S72.002A - Fracture of unspecified part of neck of left femur, initial encounter for closed fracture - Assessment and plan all Dx Assessment and Plan for all problems:: Overall patient is doing very nicely postoperative day 1. Continue anticoagulation injections. PT evaluation. Track blood counts tomorrow. In regards to her severe COPD will continue current therapy. I discussed with her her need for inpatient rehabilitation stay
[2017-11-04 07:35] LABS: Albumin Level 2.9 gm/dL (3.4-5.0); Albumin/Globulin Ratio 1.3 (1.1-1.8); Anion Gap 8.7 mEq/L (5-15); Bilirubin,Total 0.4 mg/dL (0.2-1.0); Calcium 8.2 mg/dL (8.5-10.1); Globulin 2.2 gm/dl (1.3-3.2); Potassium 4.7 mmoL/L (3.5-5.1); Total Protein,Serum 5.1 gm/dL (6.4-8.2)
[2017-11-04 07:43] LABS: Hemoglobin 9.2 g/dL (12.2-16.2)
--- NOTE | 2017-11-04 22:09 | Progress Note ---
Subjective Date: 11/04/17 Time: 20:00 Principal diagnosis: Fracture neck of femur, left hip Interval history: Patient is status post cephalo-medullary nailing left femur post op day #1. Patient is lying down in bed. Says she is doing well and reports no problems. Patient has minimal pain and says it's well-controlled with medication. No history of any nausea or vomiting. No history of any cough, chest pain, shortness of breath or palpitations. Patient says she is eating and drinking well. No history of any distal tingling or numbness. PN: Obj Ex Vital signs: Temp Pulse Resp BP Pulse Ox 98.1 F 97 H 20 117/63 93 L 11/04/17 20:00 11/04/17 20:00 11/04/17 20:00 11/04/17 20:00 11/04/17 20:00 Narrative: Laboratory Results - last 24 hr 11/04/17 05:50: WBC 9.0, RBC 3.10 L, Hgb 9.2 L D, Hct 29.0 L, MCV 93.7, MCH 30.2, MCHC 32.2, RDW 13.8, Plt Count 92 L, MPV 7.9, Neut % (Auto) 82.9 H, Lymph % (Auto) 8.2 L, [place] % (Auto) 8.6, Eos % (Auto) 0.1, Baso % (Auto) 0.3, Neut # (Auto) 7.4, Lymph # (Auto) 0.7, [place] # (Auto) 0.8, Eos # (Auto) 0.0, Baso # (Auto) 0.0 11/04/17 05:50: Sodium 144, Potassium 4.7, Chloride 108 H, Carbon Dioxide 32, Anion Gap 8.7, BUN 18, Creatinine 0.64, Estimated Creat Clear 36, Estimated GFR 88, Est GFR ( Amer) 106, Glucose 155 H D, Calcium 8.2 L, Total Bilirubin 0.4, AST 22, ALT 22, Alkaline Phosphatase 80, Total Protein 5.1 L D, Albumin 2.9 L D, Globulin 2.2, Albumin/Globulin Ratio 1.3 Exam General appearance: alert, active, awake, no acute distress Cardiovascular: regular rate & rhythm, normal peripheral pulses Respiratory: No respiratory distress, speaking full sentences ABD: Soft and non tender Neuro: alert, awake, oriented Psych: normal mood and affect On examination of the lower extremities the limb lengths are equal. Thigh and calf are soft and nontender. On examination of the LEFT hip/thigh the dressings are clean, dry and intact. Distal pulses are 1+. Distal sensation is intact to light touch throughout. No motor deficits noted distally. Postoperative x-rays satisfactory with good reduction and fixation of the fracture with a long gamma nail. No radiological complications noted. - Urinary Catheter Management Long Cath placed during this visit: yes Urethral indwelling: No Insertion date: 11/02/17 Insertion time: 21:45 Progress Note: A&P (1) Hip fx Status: Acute Assessment and plan: I reviewed the clinical and operative findings and procedure performed with the patient. Patient is doing very well and reports no problems. Patient can be mobilized weightbearing as tolerated on the LEFT side with the walker. Continue DVT prophylaxis. Case management consult regarding discharge planning. Medical management as per Dr. Antoine. Current Visit: Yes (2) COPD (chronic obstructive pulmonary disease) Status: Chronic Current Visit: Yes (3) Cachexia Status: Chronic Current Visit: Yes (4) Hypothyroidism Status: Chronic Current Visit: Yes (5) Hip fracture, left Status: Acute Current Visit: Yes
[2017-11-05 06:47] LABS: Basophils % 0.3 % (0.1-2.0); Eosinophils # 0.1 K/mm3 (0.0-0.4); Eosinophils % 1.6 % (0.1-12.0); Lymphocytes # 1.3 K/mm3 (0.7-4.5); Lymphocytes % 14.8 K/mm3 (10-50); Mean Corpuscular HGB Conc 32.9 g/dL (31.8-35.4); Mean Corpuscular Hemoglobin 30.9 pg (27.0-31.2); Mean Corpuscular Volume 93.8 fl (81-99); Mean Platelet Volume 7.7 fl (7.4-10.4); Monocytes # 0.8 K/mm3 (0.1-1.0); Neutrophils # 6.6 K/mm3 (1.8-7.8); Neutrophils % 74.4 % (37.0-80.0); Platelet Count 79 K/mm3 (142-424); Red Blood Count 2.42 M/mm3 (4.20-5.40); Red Cell Distribution Width 14.3 % (11.5-17.5); White Blood Count 8.9 K/mm3 (4.8-10.8)
[2017-11-05 06:54] LABS: Anion Gap 6.8 mEq/L (5-15); Calcium 8.2 mg/dL (8.5-10.1); Hematocrit 22.7 % (37.0-47.0); Hemoglobin 7.5 g/dL (12.2-16.2); Potassium 3.8 mmoL/L (3.5-5.1)
--- NOTE | 2017-11-05 08:34 | Progress Note ---
Internal Medicine - PN: Subj *Date: 11/05/17 *Time: 08:33 Interval history: Patient has slept fairly well through the night, was able to urinate this morning after some difficulty last night. Pain is a little worse today but is tolerable for her. Exam Vital signs and Labs for Last 24 Hours: Temp Pulse Resp BP Pulse Ox 98.4 F 96 H 20 127/67 92 L 11/05/17 07:42 11/05/17 07:42 11/05/17 07:42 11/05/17 07:42 11/05/17 07:42 Laboratory Results - last 24 hr 11/05/17 06:16: WBC 8.9, RBC 2.42 L, Hgb 7.5 L*, Hct 22.7 L*, MCV 93.8, MCH 30.9, MCHC 32.9, RDW 14.3, Plt Count 79 L, MPV 7.7, Neut % (Auto) 74.4, Lymph % (Auto) 14.8, [place] % (Auto) 9.0, Eos % (Auto) 1.6, Baso % (Auto) 0.3, Neut # (Auto) 6.6, Lymph # (Auto) 1.3, [place] # (Auto) 0.8, Eos # (Auto) 0.1, Baso # (Auto) 0.0 11/05/17 06:16: Sodium 142, Potassium 3.8, Chloride 108 H, Carbon Dioxide 31, Anion Gap 6.8, BUN 14, Creatinine 0.53 L, Estimated Creat Clear 34, Estimated GFR 109, Est GFR ( Amer) 132 D, Glucose 111 H, Calcium 8.2 L I & O for Last 24 hours: Intake & Output 11/02/17 11/03/17 11/04/17 11/05/17 11:59 11:59 11:59 11:59 Intake Total 1600 / 1600 2043 / 2043 2263 / 2263 Output Total 300 / 300 450 / 450 550 / 550 Balance 1300 / 1300 1593 / 1593 1713 / 1713 Weight 114 lb 6 oz 123 lb 8 oz 116 lb 8 oz Narrative: Patient is alert. Pleasant. Oropharynx clear, no JVD. Otherwise ENT exam clear. Lungs have poor air movement, but at baseline. Heart rate regular. Abdomen soft, distal extremities without edema. Warm and well-perfused. Assessment and Plan (1) Hip fx Current visit: Yes Status: Acute Qualifiers: Encounter type: initial encounter Fracture type: closed Laterality: left Qualified Code(s): S72.002A - Fracture of unspecified part of neck of left femur, initial encounter for closed fracture Category: Medical Code(s): S72.009A - Fracture of unspecified part of neck of unspecified femur, initial encounter for closed fracture (2) COPD (chronic obstructive pulmonary disease) Current visit: Yes Status: Chronic Qualifiers: COPD type: unspecified COPD Qualified Code(s): J44.9 - Chronic obstructive pulmonary disease, unspecified Category: Medical Code(s): J44.9 - Chronic obstructive pulmonary disease, unspecified (3) Cachexia Current visit: Yes Status: Chronic Category: Medical Code(s): R64 - Cachex [place] (4) Hypothyroidism Current visit: Yes Status: Chronic Qualifiers: Hypothyroidism type: acquired Qualified Code(s): E03.9 - Hypothyroidism, unspecified Category: Medical Code(s): E03.9 - Hypothyroidism, unspecified (5) Hip fracture, left Current visit: Yes Status: Acute Category: Medical Code(s): S72.002A - Fracture of unspecified part of neck of left femur, initial encounter for closed fracture (6) Postoperative anemia Current visit: Yes Status: Acute Category: Medical Code(s): D64.9 - Anemia, unspecified Doing well from operative perspective. Continue close observation of her significant emphysema status. PT will continue. Long-term care transfer Monday or Monday. Postoperative anemia noted. Given her asymptomatic status we will observe again tomorrow.
--- NOTE | 2017-11-05 15:24 | Progress Note ---
Subjective Date: 11/05/17 Time: 14:45 Principal diagnosis: Fracture neck of femur, left hip Interval history: Patient is status post cephalo-medullary nailing LEFT hip, post op day #2. She is laying down on the bed and is comfortable. Says she is doing well and is eating and drinking well. She says her pain is well controlled with medication. No history of any fevers, chills or rigors. No history of any nausea, vomiting, chest pain or SOB. PN: Obj Ex Vital signs: Temp Pulse Resp BP Pulse Ox 98.4 F 103 H 20 127/67 92 L 11/05/17 07:42 11/05/17 14:27 11/05/17 07:42 11/05/17 07:42 11/05/17 07:42 Narrative: Laboratory Results - last 24 hr 11/05/17 06:16: WBC 8.9, RBC 2.42 L, Hgb 7.5 L*, Hct 22.7 L*, MCV 93.8, MCH 30.9, MCHC 32.9, RDW 14.3, Plt Count 79 L, MPV 7.7, Neut % (Auto) 74.4, Lymph % (Auto) 14.8, [place] % (Auto) 9.0, Eos % (Auto) 1.6, Baso % (Auto) 0.3, Neut # ( Auto) 6.6, Lymph # (Auto) 1.3, [place] # (Auto) 0.8, Eos # (Auto) 0.1, Baso # (Auto) 0.0 11/05/17 06:16: Sodium 142, Potassium 3.8, Chloride 108 H, Carbon Dioxide 31, Anion Gap 6.8, BUN 14, Creatinine 0.53 L, Estimated Creat Clear 34, Estimated GFR 109, Est GFR ( Amer) 132 D, Glucose 111 H, Calcium 8.2 L General appearance: Alert, awake, no acute distress ENT: dry mucous membranes Cardiovascular: regular rate & rhythm Respiratory: no respiratory distress, speaks in full sentences ABD: soft and nontender. On examination of her LEFT lower extremity, the limb lengths are equal. The alignment is neutral. The dressings over the LEFT hip are clean, dry and intact. The dressings were changed by me and all the 3 surgical incisions look dry, clean and healthy. No signs of any infection or other complications noted. Any attempted movements of the LEFT hip are painful. Distal neurovascular status is intact. Thigh and calf are soft and nontender. No clinical signs of DVT. - Urinary Catheter Management Long Cath placed during this visit: yes Urethral indwelling: No Insertion date: 11/02/17 Insertion time: 21:45 Progress Note: A&P (1) Hip fx Status: Acute Assessment and plan: I reviewed the findings and progress with the patient and family. The dressings were changed and the incisions are healthy. Continue mobilization with a walker and with the help of physical therapist, weightbearing on the LEFT side as tolerated. Continue PT/OT, pain management with as needed analgesics. From an orthopedic standpoint, she can be discharged if medically appropriate. Recommend DVT prophylaxis for 5 weeks postop- the appropriate agents include Lovenox, Aspirin 325 mg, Xarelto (Rivaroxaban), Eliquis (apixaban) and Coumadin. Follow- up in my office in 2 weeks time with check x-ray. Medical management as per Dr. Antoine's team. Current Visit: Yes (2) COPD (chronic obstructive pulmonary disease) Status: Chronic Current Visit: Yes (3) Cachexia Status: Chronic Current Visit: Yes (4) Hypothyroidism Status: Chronic Current Visit: Yes (5) Hip fracture, left Status: Acute Current Visit: Yes (6) Postoperative anemia Status: Acute Current Visit: Yes
[2017-11-06 06:26] LABS: Anion Gap 5.1 mEq/L (5-15); Calcium 7.8 mg/dL (8.5-10.1); Potassium 4.1 mmoL/L (3.5-5.1)
[2017-11-06 06:29] LABS: Basophils % 0.3 % (0.1-2.0); Eosinophils # 0.2 K/mm3 (0.0-0.4); Eosinophils % 2.1 % (0.1-12.0); Lymphocytes # 1.3 K/mm3 (0.7-4.5); Lymphocytes % 16.9 K/mm3 (10-50); Mean Corpuscular HGB Conc 32.2 g/dL (31.8-35.4); Mean Corpuscular Hemoglobin 30.8 pg (27.0-31.2); Mean Corpuscular Volume 95.5 fl (81-99); Mean Platelet Volume 8.4 fl (7.4-10.4); Monocytes # 0.7 K/mm3 (0.1-1.0); Monocytes % 9.6 % (1.7-9.3); Neutrophils # 5.3 K/mm3 (1.8-7.8); Neutrophils % 71.1 % (37.0-80.0); Platelet Count 82 K/mm3 (142-424); Red Blood Count 2.19 M/mm3 (4.20-5.40); Red Cell Distribution Width 14.4 % (11.5-17.5); White Blood Count 7.5 K/mm3 (4.8-10.8)
[2017-11-06 06:54] LABS: Hematocrit 20.9 % (37.0-47.0); Hemoglobin 6.7 g/dL (12.2-16.2)
--- NOTE | 2017-11-06 07:35 | Progress Note ---
Internal Medicine - PN: Subj *Date: 11/06/17 *Time: 07:34 Interval history: Patient slept fairly well overnight. Has not voided since last night and feels like her bladder is somewhat distended. Exam Vital signs and Labs for Last 24 Hours: Temp Pulse Resp BP Pulse Ox 97.5 F L 105 H 20 110/59 91 L 11/06/17 04:00 11/06/17 06:35 11/06/17 04:00 11/06/17 04:00 11/06/17 06:35 Laboratory Results - last 24 hr 11/06/17 05:49: WBC 7.5, RBC 2.19 L, Hgb 6.7 L*, Hct 20.9 L*, MCV 95.5, MCH 30.8, MCHC 32.2, RDW 14.4, Plt Count 82 L, MPV 8.4, Neut % (Auto) 71.1, Lymph % (Auto) 16.9, [place] % (Auto) 9.6 H, Eos % (Auto) 2.1, Baso % (Auto) 0.3, Neut # (Auto) 5.3, Lymph # (Auto) 1.3, [place] # (Auto) 0.7, Eos # (Auto) 0.2, Baso # (Auto) 0.0 11/06/17 05:49: Sodium 142, Potassium 4.1, Chloride 109 H, Carbon Dioxide 32, Anion Gap 5.1, BUN 9 D, Creatinine 0.43 L, Estimated Creat Clear 35, Estimated GFR 139, Est GFR ( Amer) 168 D, Glucose 94, Calcium 7.8 L I & O for Last 24 hours: Intake & Output 11/03/17 11/04/17 11/05/17 11/06/17 11:59 11:59 11:59 11:59 Intake Total 1600 / 1600 2043 / 2043 2263 / 2263 2491 / 2491 Output Total 300 / 300 450 / 450 550 / 550 1000 / 1000 Balance 1300 / 1300 1593 / 1593 1713 / 1713 1491 / 1491 Weight 114 lb 6 oz 123 lb 8 oz 116 lb 8 oz 120 lb 1 oz Narrative: Patient has done well with physical therapy. Please see previous notes. ENT exam still clear. Heart rate regular, lungs clear, abdomen soft, bladder is somewhat distended. Assessment and Plan (1) Hip fx Current visit: Yes Status: Acute Qualifiers: Encounter type: initial encounter Fracture type: closed Laterality: left Qualified Code(s): S72.002A - Fracture of unspecified part of neck of left femur, initial encounter for closed fracture Category: Medical Code(s): S72.009A - Fracture of unspecified part of neck of unspecified femur, initial encounter for closed fracture (2) COPD (chronic obstructive pulmonary disease) Current visit: Yes Status: Chronic Qualifiers: COPD type: unspecified COPD Qualified Code(s): J44.9 - Chronic obstructive pulmonary disease, unspecified Category: Medical Code(s): J44.9 - Chronic obstructive pulmonary disease, unspecified (3) Cachexia Current visit: Yes Status: Chronic Category: Medical Code(s): R64 - Cachexia (4) Hypothyroidism Current visit: Yes Status: Chronic Qualifiers: Hypothyroidism type: acquired Qualified Code(s): E03.9 - Hypothyroidism, unspecified Category: Medical Code(s): E03.9 - Hypothyroidism, unspecified (5) Hip fracture, left Current visit: Yes Status: Acute Category: Medical Code(s): S72.002A - Fracture of unspecified part of neck of left femur, initial encounter for closed fracture (6) Postoperative anemia Current visit: Yes Status: Acute Category: Medical Code(s): D64.9 - Anemia, unspecified - Assessment and plan all Dx Assessment and Plan for all problems:: Overall patient is doing fairly well. In/out Long catheterization. We will anchor if significant residual. Anemia secondary to blood loss postoperatively. 2 units packed cells today.
--- NOTE | 2017-11-06 15:46 | Discharge Summary ---
General - General Admission date:: 11/02/17 Discharge date: 11/07/17 HPI HPI: Patient is a pleasant 87-year-old female admitted to the hospital last night with a diagnosis of left hip fracture. She says she tripped and fell down while getting into the house after coming back from [place] yesterday evening. Following the fall patient was brought to the ER where evaluation confirmed a displaced left hip fracture. She says she was unable to get up and walk after the fall. Patient denies any dizziness, headache, chest or neck pain. She says her pain is well controlled at rest but trying to move the LEFT leg causes hip pain. She denies loss of consciousness, chest pain and shortness of breath. She has history of end-stage COPD. She denies any other injuries. She lives by herself and usually walks independently and occasionally uses a cane. Hospital Course Hospital Course: 87-year-old female who fell at home breaking left femoral neck. Admitted to medical service for management. Orthopedic surgery consulted for surgical fixation. Performed ORIF. Patient was initiated on troll and anticoagulation. Monitor for blood loss and chronic conditions. Receive transfusion while admitted due to decrease in hemoglobin postsurgically. Remained hemodynamically stable throughout admission. Required minimal opioid pain management. Physical therapy and Occupational Therapy assessed patient for rehabilitation mentation long-term facility for rehab plan to discharge to SNF with home medication regimen for COPD, hypertension, anxiety. Continue pain treatment with [facility] as needed. Anticoagulation to be continued for 5 weeks consisting of high-dose aspirin 325 mg daily. Medically stable for discharge. Objective Vital signs: Temp Pulse Resp BP Pulse Ox 98.3 F 104 H 18 106/62 97 11/06/17 13:30 11/06/17 14:46 11/06/17 13:30 11/06/17 13:30 11/06/17 14:46 Results Labs on day of discharge: Labs from last 24 hours 11/06/17 11/06/17 11/06/17 08:05 05:49 05:49 WBC 7.5 RBC 2.19 L Hgb 6.7 L* Hct 20.9 L* MCV 95.5 MCH 30.8 MCHC 32.2 RDW 14.4 Plt Count 82 L MPV 8.4 Neut % (Auto) 71.1 Lymph % (Auto) 16.9 [place] % (Auto) 9.6 H Eos % (Auto) 2.1 Baso % (Auto) 0.3 Neut # (Auto) 5.3 Lymph # (Auto) 1.3 [place] # (Auto) 0.7 Eos # (Auto) 0.2 Baso # (Auto) 0.0 Sodium 142 Potassium 4.1 Chloride 109 H Carbon Dioxide 32 Anion Gap 5.1 BUN 9 D Creatinine 0.43 L Estimated Creat Clear 35 Estimated GFR 139 Est GFR ( Amer) 168 D Glucose 94 Calcium 7.8 L Blood Type O Positive Antibody Screen Negative Crossmatch (AHG) See Detail DS: Diagnosis - Discharge Diagnosis (1) Hip fx Status: Acute (2) COPD (chronic obstructive pulmonary disease) Status: Chronic (3) Cachexia Status: Chronic (4) Hypothyroidism Status: Chronic (5) Hip fracture, left Status: Acute (6) Postoperative anemia Status: Acute Discharge Plan - Patient Discharge Instructions Patient Instructions: Hip Fracture, Chronic Obstructive Pulmonary Disease, How to Prevent Falls - Follow up Plan Follow up with: Ridge Ramirez MD [Staff Physician] - 2 weeks Tyler Antoine MD [Primary Care Provider] - 1 week Disposition: er [facility] Home Medications: Home Medications Medication Instructions Recorded Confirmed Type Aspirin [Aspirin 325mg Tab] 325 mg PO DAILY 03/16/17 11/02/17 History Budesonide 0.25 mg PO BID 03/16/17 11/03/17 History Furosemide [Furosemide 20mg Tab] 20 mg PO DAILY 03/16/17 11/02/17 History Levothyroxine Sodium 100 mcg PO DAILY 03/16/17 11/03/17 History [Levothyroxine 100mcg (0.1MG) Tab] Methenamine/Sodium Salicylate 1 each PO DAILY PRN 03/16/17 11/02/17 History [Cystex Plus Tablet] Alendronate Sodium 35 mg PO WEEKLY 03/17/17 11/02/17 History Metoprolol Succinate 50 mg PO DAILY 03/17/17 11/02/17 History Azithromycin [Azithromycin 500mg 500 mg PO QODHS 11/02/17 11/02/17 History Tab] Tiotropium Br/Olodaterol HCl 4 gm IH BID 11/02/17 11/02/17 History [Stiolto Respimat Inhal [place]] Ipratropium/Albuterol Sulfate 3 ml IH Q4HP PRN 11/03/17 11/03/17 History [Iprat-Albut 0.5-3(2.5) mg/3 ml] Prescriptions/Medication Reconciliation: New Acetaminophen [Acetaminophen 325mg tab] 650 mg PO Q6HP PRN tablet PRN Reason: Mild To Moderate Pain Hydrocod/Acet 5/325 mg [[place] 5/325mg tablet] 1 tab PO Q4HP PRN tablet PRN Reason: Moderate To Severe Pain Docusate Sodium [Docusate Sodium 100mg Cap] 100 mg PO BIDP PRN capsule PRN Reason: Constipation Ipratropium/Albuterol Sulfate [Duoneb 3mL neb] 3 ml IH TIDRT ampul.neb Mag Hydrox/Aluminum Hyd/Simeth [Maalox 30ml UDC] 30 ml PO Q2HP PRN oral.susp PRN Reason: Gi Upset Hydrocod/Acet 5/325 mg [[place] 5/325mg tablet] 1 - 2 tab PO Q4HP PRN 3 Days #12 tab PRN Reason: Moderate To Severe Pain Cholecalciferol (Vitamin D3) [Vitamin D3 1,000 Unit Cap] 1,000 unit PO DAILY 30 Days #30 cap Esomeprazole Magnesium [Nexium 24Hr] 20 mg PO DAILY 30 Days #30 tablet. Ipratropium/Albuterol Sulfate [Duoneb 3mL neb] 3 ml IH Q1HP PRN ampul.n eb PRN Reason: SHORTNESS OF BREATH Ascorbic Acid [Vitamin C 500mg tablet] 500 mg PO DAILY 30 Days #30 tablet Continue Budesonide 0.25 mg PO BID Levothyroxine Sodium [Levothyroxine 100mcg (0.1MG) Tab] 100 mcg PO DAILY Aspirin [Aspirin 325mg Tab] 325 mg PO DAILY Methenamine/Sodium Salicylate [Cystex Plus Tablet] 1 each PO DAILY PRN PRN Reason: UTI SYMPTOMS Metoprolol Succinate 50 mg PO DAILY Azithromycin [Azithromycin 500mg Tab] 500 mg PO QODHS ALPRAZolam [Xanax 0.5mg tab] 0.5 mg PO TIDP PRN 30 Days #90 tab PRN Reason: Anxiety Furosemide [Furosemide 20mg Tab] 20 mg PO DAILY Alendronate Sodium 35 mg PO WEEKLY Tiotropium Br/Olodaterol HCl [Stiolto Respimat Inhal [place]] 4 gm IH BID Ipratropium/Albuterol Sulfate [Iprat-Albut 0.5-3(2.5) mg/3 ml] 3 ml IH Q4HP PRN PRN Reason: Shortness Of Breath Discontinued Ipratropium/Albuterol Sulfate [Albut-Ipratropium 2.5mg-0.5mg/3 ml] 1 inh PO Q4HP PRN PRN Reason: BREATHING
--- NOTE | 2017-11-06 16:15 | Progress Note ---
Subjective Date: 11/06/17 Time: 15:15 Principal diagnosis: Fracture neck of femur, left hip PN: Obj Ex Vital signs: Temp Pulse Resp BP Pulse Ox 98.3 F 104 H 18 106/62 97 11/06/17 13:30 11/06/17 14:46 11/06/17 13:30 11/06/17 13:30 11/06/17 14:46 Narrative: Laboratory Results - last 24 hr 11/06/17 05:49: WBC 7.5, RBC 2.19 L, Hgb 6.7 L*, Hct 20.9 L*, MCV 95.5, MCH 30.8, MCHC 32.2, RDW 14.4, Plt Count 82 L, MPV 8.4, Neut % (Auto) 71.1, Lymph % (Auto) 16.9, [place] % (Auto) 9.6 H, Eos % (Auto) 2.1, Baso % (Auto) 0.3, Neut # (Auto) 5.3, Lymph # (Auto) 1.3, [place] # (Auto) 0.7, Eos # (Auto) 0.2, Baso # (Auto) 0.0 11/06/17 05:49: Sodium 142, Potassium 4.1, Chloride 109 H, Carbon Dioxide 32, Anion Gap 5.1, BUN 9 D, Creatinine 0.43 L, Estimated Creat Clear 35, Estimated GFR 139, Est GFR ( Amer) 168 D, Glucose 94, Calcium 7.8 L 11/06/17 08:05: Blood Type O Positive, Antibody Screen Negative, Crossmatch (AHG) See Detail - Urinary Catheter Management Long Cath placed during this visit: yes Urethral indwelling: No Insertion date: 11/02/17 Insertion time: 21:45 Progress Note: A&P (1) Hip fx Status: Acute Current Visit: Yes (2) COPD (chronic obstructive pulmonary disease) Status: Chronic Current Visit: Yes (3) Cachexia Status: Chronic Current Visit: Yes (4) Hypothyroidism Status: Chronic Current Visit: Yes (5) Hip fracture, left Status: Acute Current Visit: Yes (6) Postoperative anemia Status: Acute Current Visit: Yes
[2017-11-06 20:31] LABS: Hematocrit 30.5 % (37.0-47.0)
[2017-11-06 20:48] LABS: Hemoglobin 10.3 g/dL (12.2-16.2)
[2017-11-07 06:36] LABS: Basophils % 0.5 % (0.1-2.0); Eosinophils # 0.4 K/mm3 (0.0-0.4); Eosinophils % 4.9 % (0.1-12.0); Hematocrit 30.1 % (37.0-47.0); Hemoglobin 10.1 g/dL (12.2-16.2); Lymphocytes # 1.4 K/mm3 (0.7-4.5); Lymphocytes % 18.9 K/mm3 (10-50); Mean Corpuscular HGB Conc 33.5 g/dL (31.8-35.4); Mean Corpuscular Hemoglobin 30.6 pg (27.0-31.2); Mean Corpuscular Volume 91.2 fl (81-99); Mean Platelet Volume 8.1 fl (7.4-10.4); Monocytes # 0.6 K/mm3 (0.1-1.0); Monocytes % 8.4 % (1.7-9.3); Neutrophils # 4.9 K/mm3 (1.8-7.8); Neutrophils % 67.2 % (37.0-80.0); Platelet Count 81 K/mm3 (142-424); Red Blood Count 3.31 M/mm3 (4.20-5.40); Red Cell Distribution Width 15.1 % (11.5-17.5); White Blood Count 7.3 K/mm3 (4.8-10.8)
[2017-11-07 06:55] LABS: Albumin Level 2.4 gm/dL (3.4-5.0); Albumin/Globulin Ratio 0.9 (1.1-1.8); Anion Gap 8.2 mEq/L (5-15); Bilirubin,Total 0.8 mg/dL (0.2-1.0); Calcium 7.9 mg/dL (8.5-10.1); Globulin 2.8 gm/dl (1.3-3.2); Potassium 4.2 mmoL/L (3.5-5.1); Total Protein,Serum 5.2 gm/dL (6.4-8.2)
[2017-11-07 08:25] VITALS: BP 144/76
== END 2017-11-07 12:00 ==
LOC: ER 19:21 → 2ND 19:21
PROVIDERS: ADMIT Family Medicine; ATTEND Internal Medicine Adolescent Medicine
CPT/HCPCS: 36415; 70450; 71010; 71045; 72125; 73502; 73552; 76001; 80048; 80053; 81001; 83735; 85014; 85018; 85025; 86850; 93005; 93306; 94640; 94761; 96365; 96375; 97161; 99285; C1713; C1769; C1776; G0378; J2405; P9016; S0077

== ENCOUNTER 2018-03-03 20:42 | Inpatient (IN) ==
[2018-03-03 21:07] LABS: Coronavirus 229E Not Detected (NotDetected); Coronavirus NL63 Not Detected (NotDetected); Coronavirus OC43 Not Detected (NotDetected); Coronovirus HKU1,PCR Not Detected (NotDetected)
[2018-03-03 21:13] LABS: Basophils % 0.2 % (0.1-2.0); Hematocrit 45.1 % (37.0-47.0); Hemoglobin 14.4 g/dL (12.2-16.2); Lymphocytes # 0.7 K/mm3 (0.7-4.5); Lymphocytes % 3.8 % (10-50); Mean Corpuscular HGB Conc 31.9 g/dL (31.8-35.4); Mean Corpuscular Hemoglobin 31.7 pg (27.0-31.2); Mean Corpuscular Volume 99.3 fl (81-99); Mean Platelet Volume 7.5 fl (7.4-10.4); Monocytes # 1.1 K/mm3 (0.1-1.0); Monocytes % 5.7 % (1.7-9.3); Neutrophils # 16.5 K/mm3 (1.8-7.8); Neutrophils % 90.2 % (37.0-80.0); Platelet Count 122 K/mm3 (142-424); Red Blood Count 4.54 M/mm3 (4.20-5.40); Red Cell Distribution Width 13.4 % (11.5-17.5); White Blood Count 18.3 K/mm3 (4.8-10.8)
[2018-03-03 21:14] LABS: ABG Base Excess 4.7 mmol/L (-2.4-2.3); ABG HCO3 30.2 mmhg (22.0-26.0); ABG Oxygen Saturation 90 % (90-100); ABG PH 7.36 mmol/L (7.35-7.45); ABG PO2 58.8 mmhg (80-100); ABG TCO2 31.8 mmhg (23-27); Allen's Test Y; Oxygen 2 %
[2018-03-03 21:15] LABS: ABG PCO2 54.5 mmhg (35.0-45.0)
--- NOTE | 2018-03-03 21:21 | Emergency Department Note ---
ED Disposition Clinical Impression: Acute exacerbation of chronic obstructive airways disease, Thrombocytopenia, Low body mass index (BMI) Community acquired pneumonia Qualifiers: Laterality: right Lung location: lower lobe of lung Qualified Code(s): J18.1 - Lobar pneumonia, unspecified organism Disposition: Admitted as Observation Condition on Discharge: Good Referrals: Tyler Antoine MD [Primary Care Provider] - - Critical Care Critical Care Time: No Attestation: On 03/03/18, the high probability of a clinically significant, sudden or life threatening deterioration of the following system(s) required my full and direct attention, intervention and personal management. The time I documented below is in addition to time spent performing reported procedures but includes the following listed in this critical care notation. Medical Decision Making - Medical Records Medical records reviewed: Yes: I reviewed the patient's medical records. - Reg Inquiry Pt receiving controlled substance: No Vital Signs: 03/03/18 20:44 03/03/18 21:04 03/03/18 21:18 Temperature 98.3 F Temperature Source Oral Pulse Rate 88 Pulse Rate [Right Radial] 107 H 115 H Respiratory Rate 28 H 28 H Blood Pressure [Right Arm] 174/94 H 183/99 H Blood Pressure Mean [Right Arm] 120 127 02 Sat by Pulse Oximetry 95 90 L Oxygen Delivery Method Nasal Cannula Nasal Cannula Oxygen Flow Rate (LPM) 2 2 03/03/18 21:19 03/03/18 21:26 Temperature 99.8 F H Temperature Source Rectal Pulse Rate 83 Pulse Rate [Right Radial] 127 H Respiratory Rate 32 H Blood Pressure [Right Arm] 191/91 H Blood Pressure Mean [Right Arm] 124 02 Sat by Pulse Oximetry 85 L Oxygen Delivery Method Nasal Cannula Oxygen Flow Rate (LPM) 2 - Lab Data Lab results reviewed: Yes: I reviewed the patient's lab results. Lab Results 03/03/18 20:55: WBC 18.3 H, RBC 4.54, Hgb 14.4, Hct 45.1, MCV 99.3 H, MCH 31.7 H , MCHC 31.9, RDW 13.4, Plt Count 122 L, MPV 7.5, Neut % (Auto) 90.2 H, Lymph % (Auto) 3.8 L, [place] % (Auto) 5.7, Eos % (Auto) 0.0 L, Baso % (Auto) 0.2, Neut # (Auto) 16.5 H, Lymph # (Auto) 0.7, [place] # (Auto) 1.1 H, Eos # (Auto) 0.0, Baso # (Auto) 0.0 03/03/18 20:55: Sodium 136, Potassium 4.0, Chloride 97 L, Carbon Dioxide 32, Anion Gap 11.0, BUN 17, Creatinine 0.72, Estimated Creat Clear 28, Estimated GFR 77, Est GFR ( Amer) 93, Glucose 174 H, Calcium 9.3, Total Bilirubin 1.0, AST 48 H, ALT 49, Alkaline Phosphatase 165 H, Troponin I < 0.02, Total Protein 7.6 D, Albumin 3.8, Globulin 3.8 H, Albumin/Globulin Ratio 1.0 L 03/03/18 20:55: Lactate 1.3 03/03/18 21:13: Specimen Source R/r, O2 % 2, ABG pH 7.36, ABG pCO2 54.5 H, ABG pO2 58.8 L, ABG HCO3 30.2 H, ABG Total CO2 31.8 H, ABG O2 Saturation 90, ABG Base Excess 4.7 H, Melvin Test Y Result diagrams: 03/03/18 20:55 03/03/18 20:55 Orders (Tests/Meds): ED MEDICATIONS Generic Name Dose Route Start Last Admin Trade Name Freq PRN Reason Stop Dose Admin Sodium Chloride 500 mls @ 999 mls/hr 03/03/18 21:30 03/03/18 21:31 Sod Chlor 0.9% 1000ml Bag IV 03/03/18 22:00 999 mls/hr .Q31M CARLOS Administration Levofloxacin/Dextrose 750 mg in 150 mls @ 100 mls/hr 03/03/18 21:45 Levofloxacin 750mg/150ml Premix IV 03/17/18 21:44 Q24H CARLOS Protocol Sodium Chloride 10 ml 03/03/18 20:54 Saline Flush 10ml Syringe IV 04/02/18 20:53 NEEDED PRN Maintain IV Site Sodium Chloride 3 ml 03/03/18 20:54 Sodium Chloride 3% 15ml Neb IH 04/02/18 20:53 ONCE PRN INDUCE SPUTUM COLLECTION Discontinued Medications Generic Name Dose Route Start Last Admin Trade Name Freq PRN Reason Stop Dose Admin Albuterol/Ipratropium 3 ml 03/03/18 20:54 03/03/18 21:18 Duoneb 3ml Neb IH 03/03/18 20:55 3 ml ONCE ONE Administration Methylprednisolone Sodium Succinate 125 mg 03/03/18 20:55 03/03/18 21:03 Solu-Medrol 125mg/2ml Vial IV 03/03/18 20:56 125 mg ONCE ONE Administration Morphine Sulfate 2 mg 03/03/18 21:24 03/03/18 21:30 Morphine 2mg/Ml Syringe IV 03/03/18 21:25 2 mg ONCE ONE Administration ORDERS Category Date Time Status XR chest portable Stat Exams 03/03/18 20:53 Taken Complete Blood Count Auto Diff Stat Lab 03/03/18 20:55 Results Upper Respiratory Panel, PCR Stat Lab 03/03/18 20:55 Received Blood Culture Stat Micro 03/03/18 21:04 Ordered Sputum Culture & Gram Stain Stat Micro 03/03/18 20:54 Ordered ABG [Arterial Blood Gas] Stat RT 03/03/18 21:16 Ordered - Radiology Data #1 Image(s): Chest Image Reviewed: Yes I reviewed the patient's radiology image Preliminary Findings: Abnormal (copd/rt base chabges ) - ECG Data Tracing #1 Arrhythmias present: sinus tach Ischemic changes: non-specific ST-T wave changes - Physician Consults Physician Consulted: waqar Reason -: Admission Resp/SOB HPI - General Chief Complaint: Shortness of Breath/Dyspnea Stated Complaint: SOA,KAY Time Seen by Provider: 03/03/18 21:00 Mode of Arrival: Wheelchair Source of Information: Patient, Spouse, Relative, Medical Record Limitations: Physical Limitations Description of Symptoms (Recalled from ER Triage Doc. by RN): shortness of breath x 3 days. pt wears home o2. granddaughter states she has been confused and running a fever at home. 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 - MD Complaint: shortness of breath, cough Onset (ago): day(s) Severity: moderate Known history of: COPD Associated symptoms: denies other symptoms Treatment prior to arrival: oxygen, bronchodilator - Related Data Home oxygen amount: 3 liters Home Medications Medication Instructions Recorded Confirmed Aspirin [Aspirin 325mg Tab] 81 mg PO DAILY 03/16/17 03/03/18 Budesonide 0.25 mg PO BID 03/16/17 03/03/18 Furosemide [Furosemide 20mg Tab] 20 mg PO DAILY 03/16/17 03/03/18 Levothyroxine Sodium 100 mcg PO DAILY 03/16/17 03/03/18 [Levothyroxine 100mcg (0.1MG) Tab] Methenamine/Sodium Salicylate 1 each PO DAILY PRN 03/16/17 03/03/18 [Cystex Plus Tablet] Alendronate Sodium [Alendronate 35 mg PO WEEKLY 03/17/17 03/03/18 35mg Tablet] Metoprolol Succinate 50 mg PO DAILY 03/17/17 03/03/18 Azithromycin [Azithromycin 500mg 500 mg PO QODHS 11/02/17 03/03/18 Tab] Tiotropium Br/Olodaterol HCl 4 gm IH BID 11/02/17 03/03/18 [Stiolto Respimat Inhal [place]] Ipratropium/Albuterol Sulfate 3 ml IH Q4HP PRN 11/03/17 03/03/18 [Iprat-Albut 0.5-3(2.5) mg/3 ml] ALPRAZolam [Xanax 0.5mg tab] 0.5 mg PO TIDP PRN 03/03/18 03/03/18 Ipratropium/Albuterol Sulfate 3 ml IH TIDRT 03/03/18 03/03/18 [Duoneb 3mL neb] Previous Rx's Medication Instructions Recorded Acetaminophen [Acetaminophen 325mg 650 mg PO Q6HP PRN tab 11/06/17 tab] Docusate Sodium [Docusate Sodium 100 mg PO BIDP PRN cap 11/06/17 100mg Cap] Ipratropium/Albuterol Sulfate 3 ml IH Q1HP PRN ampul.neb 11/07/17 [Duoneb 3mL neb] Mag Hydrox/Aluminum Hyd/Simeth 30 ml PO Q2HP PRN oral.susp 11/07/17 [Maalox 30ml UDC] Allergies Allergy/AdvReac Type Severity Reaction Status Date / Time Penicillins [PENICILLINS] Allergy Severe Anaphylaxis Verified 03/03/18 20:49 ceftriaxone Allergy Intermediate Gastrointestinal Verified 03/03/18 20:49 Upset [facility] History - Hepatitis A Screen Drug use history?: No High risk sexual behaviors?: No History of sexually transmitted infection?: No Currently employed?: No Childcare worker?: No Do you have indoor plumbing?: Yes Do you have electricity?: Yes Attestation statement:: This patient has been screened for Hepatitis A risk factors. I have reviewed the patient's past medical history: Yes Medical History: Reports:: Anxiety, Congestive Heart Failure, Chronic Obstructive Pulmonary Disease (COPD), Depression, Home Oxygen, Hypertension, Renal Insufficiency Denies:: Cancer, Diabetes Mellitus Type 1, Diabetes Mellitus Type 2, MRSA, Seizures Other Medical History: Reports: Hypothyroidism, Liver Disease, Other Comment: hypothyroidism, HTN, COPD, anxiety, freq UTIs, edema, CKD, osteoporosis Laterality Cases: Left: Total Hip Replacement, Bilateral: Tonsillectomy Other Surgeries: Yes: Tubal Ligation, Other Amputation: No Fractures: No Comment: elen - Social History Smoking Status: Current some day smoker Tobacco Type: e-cigarettes # Packs/Day (cigarettes): 1 #Yrs smoked (if former smoker): 70 Alcohol Intake: never Alcohol Intake Frequency:: holidays/special occasions only Occupational Status: retired Housing: house - Psychiatric History Expresses thoughts of harming self/others: None Suicide Plan Description: No Plan Pschychiatric History:: Reports:: Anxiety, Depression Family Hx:: Stroke ROS Obtained: Yes All systems reviewed & no additional complaints - Constitutional Constitutional: Reports as per HPI, Reports fever(s), Reports malaise - Eyes Eyes: Denies change in vision - ENT Ears, Nose, Mouth, and Throat: Denies sore throat - Cardiovascular Cardiovascular: Denies chest pain at rest - Respiratory Respiratory: Yes cough, No non-productive cough, Yes dyspnea, No coughing up blood - Gastrointestinal Gastrointestingal: Denies: abdominal pain - Genitourinary Female Genitourinary: Denies dysuria - Musculoskeletal Musculoskeletal: Denies neck pain - Integumentary/Breasts Skin/Breast: Denies rash - Neurologic Neurologic: Denies seizure-like activity Physical Exam - General General appearance: alert, cachectic - Head Head exam: normocephalic - Eye Eye exam: Present: PERRL, EOMI. Absent: scleral icterus - ENT ENT exam: Present: mucous membranes dry - Neck Neck exam: Present: trachea midline - Respiratory Respiratory exam: Present: wheezes, other (dec bs rt base ). Absent: respiratory distress - Cardiovascular Cardiovascular exam: Present: regular rate, systolic murmur, +S4 - Abdominal Exam Abdominal exam: Present: soft - Extremities Exam Extremities exam: Present: pedal edema. Absent: tenderness - Neurological Exam Neurological exam: Present: alert, oriented X3, CN II-XII intact - Psychiatric Psychiatric exam: Present: anxious - Skin Skin exam: Absent: rash
[2018-03-03 21:26] LABS: Alanine Aminotransferase 49 U/L (12-78); Albumin Level 3.8 gm/dL (3.4-5.0); Alkaline Phosphatase 165 U/L (46-116); Aspartate Amino Transferase 48 U/L (15-37); Blood Urea Nitrogen 17 mg/dL (7-18); Calcium 9.3 mg/dL (8.5-10.1); Carbon Dioxide 32 mmol/L (21.0-32.0); Chloride 97 mmol/L (98-107); Globulin 3.8 gm/dl (1.3-3.2); Glucose 174 mg/dL (74-106); Sodium 136 mmol/L (136-145); Total Protein,Serum 7.6 gm/dL (6.4-8.2)
[2018-03-03 21:42] LABS: Lymphocytes % 3 % (10-50); Monocytes % 1 % (2-9); Neutrophils % 87 % (42-76); Total Cells Counted 100
[2018-03-03 21:43] LABS: Macrocytosis 1+; Rouleaux 1+
[2018-03-04 04:01] LABS: Eosinophils % 0.2 % (0.1-12.0); Hematocrit 40.2 % (37.0-47.0); Lymphocytes # 0.3 K/mm3 (0.7-4.5); Lymphocytes % 1.8 % (10-50); Mean Corpuscular HGB Conc 32.2 g/dL (31.8-35.4); Mean Corpuscular Hemoglobin 31.7 pg (27.0-31.2); Mean Corpuscular Volume 98.6 fl (81-99); Mean Platelet Volume 7.7 fl (7.4-10.4); Monocytes # 0.6 K/mm3 (0.1-1.0); Monocytes % 3.4 % (1.7-9.3); Neutrophils # 15.1 K/mm3 (1.8-7.8); Neutrophils % 94.5 % (37.0-80.0); Platelet Count 100 K/mm3 (142-424); Red Blood Count 4.07 M/mm3 (4.20-5.40); Red Cell Distribution Width 13.4 % (11.5-17.5)
[2018-03-04 04:06] LABS: Hemoglobin 12.9 g/dL (12.2-16.2)
[2018-03-04 04:12] LABS: Anion Gap 11.8 mEq/L (5-15); Calcium 8.5 mg/dL (8.5-10.1); Potassium 3.8 mmoL/L (3.5-5.1)
--- NOTE | 2018-03-04 08:24 | History & Physical Report ---
*Admission Date: 03/03/18 *Chief complaint: respiratory distress *History of present illness: Ms. Lopez is a frail 87-year-old female with multiple comorbidities and severe COPD on 3 L of oxygen continuously at home. She presented to the ER at her family's request due to 1-2 days of fever, worsening respiratory distress, and some mild confusion. On initial presentation she was found to be hypoxemic with an elevated white count and concern for right-sided pneumonia. She was admitted to medicine for further management. Antibiotics and steroids were initiated in the ER. Patient complained of fatigue, shortness of breath, anxiousness. Denies chest pain, palpitations, headache, nausea vomiting or diarrhea. [facility] [place] History I have reviewed the patient's past medical history: Yes Medical History: Reports:: Anxiety, Congestive Heart Failure, Chronic Obstructive Pulmonary Disease (COPD), Depression, Home Oxygen, Hypertension, Renal Insufficiency Denies:: Cancer, Diabetes Mellitus Type 1, Diabetes Mellitus Type 2, MRSA, Seizures Other Medical History: Reports: Hypothyroidism, Liver Disease, Other Laterality Cases: Left: Total Hip Replacement, Bilateral: Cataract, Tonsillectomy Other Surgeries: Yes: Cholecystectomy, Tubal Ligation, Other Amputation: No Fractures: No - *Social History Educational Level: Completed High School Smoking Status: Former smoker Tobacco Type: e-cigarettes # Packs/Day (cigarettes): 1 #Yrs smoked (if former smoker): 70 Alcohol Intake: never Alcohol Intake Frequency:: holidays/special occasions only Occupational Status: retired Housing: house Household Members: none - Psychiatric History Expresses thoughts of harming self/others: None Suicide Plan Description: No Plan Pschychiatric History:: Reports:: Anxiety, Depression *Family Hx:: Diabetes, Hyperlipidemia, Hypertension, Stroke Review of Systems - Review of Systems Review of systems:: pertinent systems reviewed and negative unless documented below - *Neurologic Denies seizure-like activity Meds Home Medications Medication Instructions Recorded Confirmed Type Furosemide [Furosemide 20mg Tab] 20 mg PO DAILY 03/16/17 03/03/18 History Levothyroxine Sodium 100 mcg PO DAILY 03/16/17 03/03/18 History [Levothyroxine 100mcg (0.1MG) Tab] Alendronate Sodium [Alendronate 35 mg PO WEEKLY 03/17/17 03/03/18 History 35mg Tablet] Metoprolol Succinate 50 mg PO DAILY 03/17/17 03/03/18 History Azithromycin [Azithromycin 500mg 500 mg PO QODHS 11/02/17 03/03/18 History Tab] Acetaminophen [Acetaminophen 325mg 650 mg PO Q6HP PRN tab 11/06/17 03/03/18 Rx tab] Docusate Sodium [Docusate Sodium 100 mg PO BIDP PRN cap 11/06/17 03/03/18 Rx 100mg Cap] Mag Hydrox/Aluminum Hyd/Simeth 30 ml PO Q2HP PRN oral.susp 11/07/17 03/03/18 Rx [Maalox 30ml UDC] ALPRAZolam [Xanax 0.5mg tab] 0.5 mg PO TIDP PRN 03/03/18 03/03/18 History Ascorbic Acid [Vitamin C] 500 mg PO DAILY 03/03/18 03/03/18 History Cholecalciferol (Vitamin D3) 2,000 unit PO DAILY 03/03/18 03/03/18 History [Vitamin D3] Esomeprazole Magnesium [Nexium] 20 mg PO DAILY 03/03/18 03/03/18 History Ipratropium/Albuterol Sulfate 3 ml IH Q4-6H 03/03/18 03/03/18 History [Duoneb 3mL neb] Tiotropium Br/Olodaterol HCl 2.5 mcg IH BID 03/03/18 03/03/18 History [Stiolto Respimat Inhal [place]] Aspirin [Aspirin 81mg EC Tab] 81 mg PO DAILY 03/04/18 03/04/18 History Allergies Allergy/AdvReac Type Severity Reaction Status Date / Time Penicillins [PENICILLINS] Allergy Severe Anaphylaxis Verified 03/03/18 23:03 ceftriaxone Allergy Intermediate Gastrointestinal Verified 03/03/18 23:03 Upset Exam Vital signs and Labs for Last 24 Hours: Temp Pulse Resp BP Pulse Ox 98.0 F 94 H 22 128/80 94 L 03/04/18 08:00 03/04/18 08:00 03/04/18 08:00 03/04/18 08:00 03/04/18 08:00 Laboratory Results - last 24 hr 03/03/18 20:55: WBC 18.3 H, RBC 4.54, Hgb 14.4, Hct 45.1, MCV 99.3 H, MCH 31.7 H , MCHC 31.9, RDW 13.4, Plt Count 122 L, MPV 7.5, Neut % (Auto) 90.2 H, Lymph % (Auto) 3.8 L, [place] % (Auto) 5.7, Eos % (Auto) 0.0 L, Baso % (Auto) 0.2, Neut # (Auto) 16.5 H, Lymph # (Auto) 0.7, [place] # (Auto) 1.1 H, Eos # (Auto) 0.0, Baso # (Auto) 0.0, Total Counted 100, Neutrophils % (Manual) 87 H, Band Neutrophils % 9.0 H, Lymphocytes % (Manual) 3 L, Monocytes % (Manual) 1 L, Platelet Estimate Slight decrease, Macrocytosis 1+, [place]le[place] 1+ 03/03/18 20:55: Sodium 136, Potassium 4.0, Chloride 97 L, Carbon Dioxide 32, Anion Gap 11.0, BUN 17, Creatinine 0.72, Estimated Creat Clear 28, Estimated GFR 77, Est GFR ( Amer) 93, Glucose 174 H, Calcium 9.3, Total Bilirubin 1.0, AST 48 H, ALT 49, Alkaline Phosphatase 165 H, Troponin I < 0.02, Total Protein 7.6 D, Albumin 3.8, Globulin 3.8 H, Albumin/Globulin Ratio 1.0 L 03/03/18 20:55: Chlamy pneumoniae PCR Not detected, Adenovirus (PCR) Not detected, B. pertussis DNA (PCR) Not detected, Coronavirus OC43 (PCR) Not detected, Coronavirus HKU1 (PCR) Not detected, Coronavirus 229E (PCR) Not detected, Coronavirus NL63 (PCR) Not detected, Human Metapneumovir PCR Not detected, Influenza A (H1) PCR Not detected, Influ A (H1N1/09) PCR Not detected, Influenza A (H3) PCR Not detected, Influenza Type A (PCR) Not detected, Influenza Type B (PCR) Not detected, M. pneumoniae (PCR) Not detected, Parainfluenza 1 (PCR) Not detected, Parainfluenza 2 (PCR) Not detected, Parainfluenza 3 (PCR) Not detected, Parainfluenza 4 (PCR) Not detected, RSV (PCR) Not detected, Entero/Rhino (PCR) Not detected 03/03/18 20:55: Lactate 1.3 03/03/18 21:13: Specimen Source R/r, O2 % 2, ABG pH 7.36, ABG pCO2 54.5 H, ABG pO2 58.8 L, ABG HCO3 30.2 H, ABG Total CO2 31.8 H, ABG O2 Saturation 90, ABG Base Excess 4.7 H, Melvin Test Y 03/04/18 00:20: Troponin I 0.06 03/04/18 03:50: Sodium 136, Potassium 3.8, Chloride 99, Carbon Dioxide 29, Anion Gap 11.8, BUN 17, Creatinine 0.50 L D, Estimated Creat Clear 32, Estimated GFR 117, Est GFR ( Amer) 142 D, Glucose 189 H, Calcium 8.5, Magnesium 1.7, Troponin I 0.05 03/04/18 03:50: WBC 16.0 H, RBC 4.07 L, Hgb 12.9 D, Hct 40.2, MCV 98.6, MCH 31.7 H, MCHC 32.2, RDW 13.4, Plt Count 100 L, MPV 7.7, Neut % (Auto) 94.5 H, Lymph % (Auto) 1.8 L, [place] % (Auto) 3.4, Eos % (Auto) 0.2, Baso % (Auto) 0.0 L, Neut # (Auto) 15.1 H, Lymph # (Auto) 0.3 L, [place] # (Auto) 0.6, Eos # (Auto) 0.0, Baso # (Auto) 0.0 I & O for Last 24 hours: Intake & Output 03/01/18 03/02/18 03/03/18 03/04/18 23:59 23:59 23:59 23:59 Weight 50.887 kg 50.944 kg - Constitutional mild distress, cachectic Comments: Elderly - *Routine HEENT Exam Head: Present: normocephalic, atraumatic Eye: Present: EOMI, PERRL ENT: Present: mucous membranes moist Comments: Bitemporal wasting, edentulous. - *Routine Neck Exam Present: supple. Absent: JVD - *Routine Respiratory Exam Present: accessory muscle use, prolonged expiratory phase, rales, wheezes (Worse on right), crackles (Fine crackles right lower lobe) - *Routine Cardiovascular Exam Present: RRR, Normal S1 - *Routine Abdominal Exam Present: soft, normoactive bowel sounds. Absent: tenderness - *Routine Rectal Exam Patient deferred: visual exam - *Routine Exam Patient deferred: external exam - *Routine Extremities Exam Absent: cyanosis, clubbing, edema - *Routine Skin Exam Present: intact. Absent: cyanosis, erythema - *Routine Neurological Exam Present: alert. Absent: altered mental status Assessment and Plan (1) Acute on chronic respiratory failure with hypoxemia Current visit: Yes Status: Acute Category: Medical Code(s): J96.21 - Acute and chronic respiratory failure with hypoxia Due to community-acquired pneumonia in the setting of COPD. Antibiotics and steroids initiated. -Supplemental oxygen with goal of greater than 92% while awake, greater than 88% while asleep -Breathing treatments as ordered -Monitor for improvements over the next 24-48 hours -Patient's condition remains tenuous and day by day. -Curb 65 score of 3 for age, respiratory rate, and confusion: 15% 30-day mortality risk (2) Community acquired pneumonia Current visit: Yes Status: Acute Qualifiers: Laterality: right Lung location: lower lobe of lung Qualified Code(s): J18.1 - Lobar pneumonia, unspecified organism Category: Medical Code(s): J18.9 - Pneumonia, unspecified organism (3) COPD (chronic obstructive pulmonary disease) Current visit: No Status: Chronic Qualifiers: COPD type: unspecified COPD Qualified Code(s): J44.9 - Chronic obstructive pulmonary disease, unspecified Category: Medical Code(s): J44.9 - Chronic obstructive pulmonary disease, unspecified (4) Cachexia Current visit: No Status: Chronic Category: Medical Code(s): R64 - Cachexia Due to age and COPD, complicates care. (5) Sepsis Current visit: Yes Status: Acute Qualifiers: Sepsis type: sepsis due to unspecified organism Qualified Code(s): A41.9 - Sepsis, unspecified organism Category: Medical Code(s): A41.9 - Sepsis, unspecified organism Tachycardic, tachypneic, leukocytosis, presumed infection with pneumonia. -Blood cultures obtained, fluids running -Broad-spectrum antibiotics initiated -Lactate normal
--- NOTE | 2018-03-04 10:57 | Pharmacy Consult Notes ---
[facility] Pharmacy VTE Monitoring - Patient Demographics Admission date: 03/04/18 Report Date: 03/04/18 Time: 10:57 Allergies/Adverse Reactions: Patient Allergies Penicillins [PENICILLINS] Allergy (Severe, Verified 03/03/18 23:03) Anaphylaxis ceftriaxone Allergy (Intermediate, Verified 03/03/18 23:03) Gastrointestinal Upset Height: 1.63 m Weight: 50.944 kg Patient Problems: Current Active Problems Acute exacerbation of chronic obstructive airways disease (Acute) Community acquired pneumonia (Acute) Thrombocytopenia (Acute) Low body mass index (BMI) (Acute) - VTE Risk Labs: VTE Related Lab Results Hgb 12.9 g/dL (12.2-16.2) D 03/04/18 03:50 Hct 40.2 % (37.0-47.0) 03/04/18 03:50 Plt Count 100 K/mm3 (142-424) L 03/04/18 03:50 BUN 17 mg/dL (7-18) 03/04/18 03:50 Creatinine 0.50 mg/dL (0.55-1.02) L D 03/04/18 03:50 Estimated Creat Clear 32 mL/min (50-200) 03/04/18 03:50 VTE Score: 9 VTE Risk Level: Moderate Risk - Prophylaxis Types of VTE Prophylaxis: TEDS Knee High Location of Applied Device: Bilateral Lower Extremeties (KWAN HOSE ORDER PLACED)
[2018-03-04 13:45] LABS: Microscopic, Urine URINE MICROSCOPIC (MICROSCOPIC)
[2018-03-04 13:46] LABS: Appearance,Urine CLEAR (Clear); Bilirubin,Urine Negative (Negative); Blood, Urine 2+ (Negative); Color,Urine YELLOW (Yellow); Glucose,Urine (UA) Negative (Negative); Ketones,Urine 1+ (Negative); Leukocyte Esterase,Urine Negative (Negative); PH,Urine 6.5 (5.0-8.5); Protein,Urine 2+ (Negative); Specific Gravity, Urine 1.025 (1.005-1.030); Urobilinogen,Urine 0.2 EU/dl (0.2)
[2018-03-04 14:10] LABS: Bacteria,Urine 1+ /lpf; Mucus,Urine 1+ /lpf; Squamous Epithelial Cell,Urine Occasional #/hpf (0-5); WBC,Urine Occasional #/hpf (0-3)
--- NOTE | 2018-03-05 09:44 | Progress Note ---
Internal Medicine - PN: Subj *Date: 03/05/18 *Time: 07:30 Interval history: Did well overnight until around 3am when she reports that she woke with more shortness of breath and anxiety-type symptoms. At time of exam this has improved some with nebulizer treatments and deep breathing. Still has not been able to expectorate any sputum. She does report some pain around her right breast that is worse with coughing. Denies any difficulty with bowel or bladder, tolerating PO intake. Exam Vital signs and Labs for Last 24 Hours: Temp Pulse Resp BP Pulse Ox 97.8 F 94 H 18 138/67 95 03/05/18 07:55 03/05/18 08:00 03/05/18 07:55 03/05/18 07:55 03/05/18 07:55 Laboratory Results - last 24 hr 03/04/18 13:30: Urine Color Yellow, Urine Appearance Clear, Urine pH 6.5, Ur Specific [place] 1.025, Urine Protein 2+, Urine Glucose (UA) Negative, Urine Ketones 1+, Urine Blood 2+, Urine Nitrate Negative, Urine Bilirubin Negative, Urine Urobilinogen 0.2, Ur Leukocyte Esterase Negative, Urine RBC 10-20, Urine WBC Occasional, Ur Squamous Epith Cells Occasional, Urine Bacteria 1+, Urine Mucus 1+ I & O for Last 24 hours: Intake & Output 03/02/18 03/03/18 03/04/18 03/05/18 11:59 11:59 11:59 11:59 Intake Total 2184 / 2184 Output Total 1300 / 1300 Balance 884 / 884 Weight 112 lb 5 oz 114 lb 2 oz - Constitutional mild distress, thin, chronically ill appearing, cooperative - *Routine HEENT Exam Head: Present: normocephalic, atraumatic ENT: Present: mucous membranes moist - *Routine Neck Exam Present: supple - *Routine Respiratory Exam Present: rales, rhonchi Comments: worse on the right side, congested cough - *Routine Cardiovascular Exam Present: RRR - *Routine Abdominal Exam Present: soft, normoactive bowel sounds. Absent: tenderness - *Routine Extremities Exam Present: pulses intact. Absent: edema - *Routine Skin Exam Present: intact, dry, warm - *Routine Neurological Exam Present: oriented X3 Assessment and Plan (1) Acute on chronic respiratory failure with hypoxemia Current visit: Yes Status: Acute Category: Medical Code(s): J96.21 - Acute and chronic respiratory failure with hypoxia (2) Community acquired pneumonia Current visit: Yes Status: Acute Qualifiers: Laterality: right Lung location: lower lobe of lung Qualified Code(s): J18.1 - Lobar pneumonia, unspecified organism Category: Medical Code(s): J18.9 - Pneumonia, unspecified organism (3) COPD (chronic obstructive pulmonary disease) Current visit: No Status: Chronic Qualifiers: COPD type: unspecified COPD Qualified Code(s): J44.9 - Chronic obstructive pulmonary disease, unspecified Category: Medical Code(s): J44.9 - Chronic obstructive pulmonary disease, unspecified (4) Cachexia Current visit: No Status: Chronic Category: Medical Code(s): R64 - Cachexia (5) Sepsis Current visit: Yes Status: Acute Qualifiers: Sepsis type: sepsis due to unspecified organism Qualified Code(s): A41.9 - Sepsis, unspecified organism Category: Medical Code(s): A41.9 - Sepsis, unspecified organism - Assessment and plan all Dx Assessment and Plan for all problems:: Attempt to obtain sputum sample today. Continue IV Levaquin and steroids, pulmonary toilet,trend WBC and follow-up on cultures when available. Condition continues to be guarded due to severity of underlying COPD. The patient's infection will respond to the chosen ABx?: Yes Is the patient receiving the right drug, dose, and route?: Yes Could a more targeted ABx be ordered?: No
[2018-03-05 10:41] LABS: Hematocrit 38.6 % (37.0-47.0); Hemoglobin 12.6 g/dL (12.2-16.2); Lymphocytes # 0.4 K/mm3 (0.7-4.5); Lymphocytes % 2.6 % (10-50); Mean Corpuscular HGB Conc 32.6 g/dL (31.8-35.4); Mean Corpuscular Hemoglobin 31.9 pg (27.0-31.2); Mean Platelet Volume 7.7 fl (7.4-10.4); Monocytes # 0.5 K/mm3 (0.1-1.0); Monocytes % 3.4 % (1.7-9.3); Neutrophils # 12.8 K/mm3 (1.8-7.8); Neutrophils % 93.8 % (37.0-80.0); Platelet Count 140 K/mm3 (142-424); Red Blood Count 3.94 M/mm3 (4.20-5.40); Red Cell Distribution Width 13.4 % (11.5-17.5); White Blood Count 13.7 K/mm3 (4.8-10.8)
[2018-03-05 11:02] LABS: Anion Gap 12.2 mEq/L (5-15); Calcium 8.6 mg/dL (8.5-10.1); Potassium 4.2 mmoL/L (3.5-5.1)
[2018-03-05 11:06] LABS: Lymphocytes % 1 % (10-50); Monocytes % 2 % (2-9); Neutrophils % 97 % (42-76); RBC Morphology Normal; Total Cells Counted 100
[2018-03-06 06:40] LABS: Anion Gap 6.4 mEq/L (5-15); Calcium 8.3 mg/dL (8.5-10.1); Potassium 4.4 mmoL/L (3.5-5.1)
[2018-03-06 07:28] LABS: Basophils % 0.1 % (0.1-2.0); Hematocrit 36.6 % (37.0-47.0); Hemoglobin 11.8 g/dL (12.2-16.2); Lymphocytes # 0.4 K/mm3 (0.7-4.5); Lymphocytes % 3.8 % (10-50); Mean Corpuscular HGB Conc 32.1 g/dL (31.8-35.4); Mean Corpuscular Hemoglobin 31.6 pg (27.0-31.2); Mean Corpuscular Volume 98.5 fl (81-99); Mean Platelet Volume 6.9 fl (7.4-10.4); Monocytes # 0.5 K/mm3 (0.1-1.0); Monocytes % 4.4 % (1.7-9.3); Neutrophils # 10.6 K/mm3 (1.8-7.8); Neutrophils % 91.7 % (37.0-80.0); Platelet Count 158 K/mm3 (142-424); Red Blood Count 3.72 M/mm3 (4.20-5.40); Red Cell Distribution Width 13.4 % (11.5-17.5); White Blood Count 11.6 K/mm3 (4.8-10.8)
--- NOTE | 2018-03-06 09:02 | Progress Note ---
Internal Medicine - PN: Subj *Date: 03/06/18 *Time: 22:45 Interval history: No acute events overnight. She did receive oral morphine concentrate overnight and responded well with respect to air hunger symptoms. She continues to have difficulty swallowing but reports improved with chin-tuck. Cough is improved but she continues to feel poorly overall. Attempted to decrease O2 to 2L/NC but she reported "smothering" that improved with increasing back to 3L/NC. Exam Vital signs and Labs for Last 24 Hours: Temp Pulse Resp BP Pulse Ox 97.9 F 85 20 131/54 L 97 03/06/18 08:00 03/06/18 08:00 03/06/18 08:00 03/06/18 08:00 03/06/18 08:00 Laboratory Results - last 24 hr 03/05/18 10:25: WBC 13.7 H, RBC 3.94 L, Hgb 12.6, Hct 38.6, MCV 98.0, MCH 31.9 H , MCHC 32.6, RDW 13.4, Plt Count 140 L D, MPV 7.7, Neut % (Auto) 93.8 H, Lymph % (Auto) 2.6 L, [place] % (Auto) 3.4, Eos % (Auto) 0.0 L, Baso % (Auto) 0.0 L, Neut # (Auto) 12.8 H, Lymph # (Auto) 0.4 L, [place] # (Auto) 0.5, Eos # (Auto) 0.0, Baso # (Auto) 0.0, Total Counted 100, Neutrophils % (Manual) 97 H, Lymphocytes % (Manual) 1 L, Monocytes % (Manual) 2, Platelet Estimate Normal, RBC Morphology Normal 03/05/18 10:25: Sodium 140, Potassium 4.2, Chloride 103, Carbon Dioxide 29, Anion Gap 12.2, BUN 21 H, Creatinine 0.58, Estimated Creat Clear 33, Estimated GFR 99, Est GFR ( Amer) 119, Glucose 254 H, Calcium 8.6 03/05/18 21:08: POC Glucose 196 H 03/06/18 06:05: WBC 11.6 H, RBC 3.72 L, Hgb 11.8 L, Hct 36.6 L, MCV 98.5, MCH 31.6 H, MCHC 32.1, RDW 13.4, Plt Count 158, MPV 6.9 L, Neut % (Auto) 91.7 H, Lymph % (Auto) 3.8 L, [place] % (Auto) 4.4, Eos % (Auto) 0.0 L, Baso % (Auto) 0.1, Neut # (Auto) 10.6 H, Lymph # (Auto) 0.4 L, [place] # (Auto) 0.5, Eos # (Auto) 0.0, Baso # (Auto) 0.0 03/06/18 06:05: Sodium 140, Potassium 4.4, Chloride 105, Carbon Dioxide 33 H, Anion Gap 6.4, BUN 17, Creatinine 0.47 L, Estimated Creat Clear 34, Estimated GFR 126, Est GFR ( Amer) 152 D, Glucose 134 H D, Calcium 8.3 L I & O for Last 24 hours: Intake & Output 03/03/18 03/04/18 03/05/18 03/06/18 11:59 11:59 11:59 11:59 Intake Total 2334 / 2334 240 / 240 Output Total 1300 / 1300 500 / 500 Balance 1034 / 1034 -260 / -260 Weight 112 lb 5 oz 114 lb 2 oz 117 lb 3 oz Microbiology Reports for the Last 24 Hours: Microbiology 03/05/18 10:43 Sputum - Expectorated Sputum Gram Stain - Final 03/05/18 10:43 Sputum - Expectorated Sputum Sputum Culture - Preliminary - Constitutional mild distress Comments: baseline for patient, increased work of breathing with conversation - *Routine HEENT Exam Head: Present: normocephalic Eye: Present: conjunctivae pink ENT: Present: mucous membranes moist - *Routine Neck Exam Present: supple - *Routine Respiratory Exam Present: accessory muscle use, rhonchi Comments: worse on the right side, improved from prior exam - *Routine Cardiovascular Exam Present: RRR - *Routine Abdominal Exam Present: soft, normoactive bowel sounds - *Routine Extremities Exam Present: pulses intact. Absent: edema - *Routine Skin Exam Present: intact, warm - *Routine Neurological Exam Present: oriented X3 Assessment and Plan (1) Acute on chronic respiratory failure with hypoxemia Current visit: Yes Status: Acute Category: Medical Code(s): J96.21 - Acute and chronic respiratory failure with hypoxia (2) Community acquired pneumonia Current visit: Yes Status: Acute Qualifiers: Laterality: right Lung location: lower lobe of lung Qualified Code(s): J18.1 - Lobar pneumonia, unspecified organism Category: Medical Code(s): J18.9 - Pneumonia, unspecified organism (3) COPD (chronic obstructive pulmonary disease) Current visit: No Status: Chronic Qualifiers: COPD type: unspecified COPD Qualified Code(s): J44.9 - Chronic obstructive pulmonary disease, unspecified Category: Medical Code(s): J44.9 - Chronic obstructive pulmonary disease, unspecified (4) Cachexia Current visit: No Status: Chronic Category: Medical Code(s): R64 - Cachexia (5) Sepsis Current visit: Yes Status: Acute Qualifiers: Sepsis type: sepsis due to unspecified organism Qualified Code(s): A41.9 - Sepsis, unspecified organism Category: Medical Code(s): A41.9 - Sepsis, unspecified organism - Assessment and plan all Dx Assessment and Plan for all problems:: Clinically improving. DC IV fluids and babin catheter today. Up to chair again today. Due to severity of COPD and global weakness, will need some form of post- hospital care. She declines referral to rehabilitation facility. Agrees to speak with Hospice about palliative care at home. She suffered a hip fracture approximately 4 months ago which contributes to overall mortality risk as well. I have personally examined and agree with assessment and plan, physical exam per documentation by Mrs. Pierre.
[2018-03-06 09:04] LABS: Lymphocytes % 6 % (10-50); Monocytes % 4 % (2-9); Neutrophils % 90 % (42-76); Total Cells Counted 100
[2018-03-06 09:05] LABS: RBC Morphology Normal
[2018-03-07 07:47] LABS: Basophils # 0.1 K/mm3 (0-0.2); Basophils % 0.5 % (0.1-2.0); Eosinophils % 0.2 % (0.1-12.0); Hematocrit 40.1 % (37.0-47.0); Hemoglobin 12.9 g/dL (12.2-16.2); Lymphocytes # 0.3 K/mm3 (0.7-4.5); Lymphocytes % 2.7 % (10-50); Mean Corpuscular HGB Conc 32.2 g/dL (31.8-35.4); Mean Corpuscular Hemoglobin 32.1 pg (27.0-31.2); Mean Corpuscular Volume 99.7 fl (81-99); Mean Platelet Volume 7.1 fl (7.4-10.4); Monocytes # 0.5 K/mm3 (0.1-1.0); Monocytes % 4.8 % (1.7-9.3); Neutrophils # 9.9 K/mm3 (1.8-7.8); Neutrophils % 91.9 % (37.0-80.0); Platelet Count 161 K/mm3 (142-424); Red Blood Count 4.03 M/mm3 (4.20-5.40); Red Cell Distribution Width 13.5 % (11.5-17.5); White Blood Count 10.8 K/mm3 (4.8-10.8)
--- NOTE | 2018-03-07 07:57 | Progress Note ---
Internal Medicine - PN: Subj *Date: 03/07/18 *Time: 07:57 Exam Vital signs and Labs for Last 24 Hours: Temp Pulse Resp BP Pulse Ox 98.6 F 88 18 138/86 95 03/07/18 07:54 03/07/18 07:54 03/07/18 07:54 03/07/18 07:54 03/07/18 07:54 Laboratory Results - last 24 hr 03/06/18 06:05: Total Counted 100, Neutrophils % (Manual) 90 H, Lymphocytes % (Manual) 6 L, Monocytes % (Manual) 4, Platelet Estimate Normal, RBC Morphology Normal 03/07/18 07:25: WBC 10.8, RBC 4.03 L, Hgb 12.9, Hct 40.1, MCV 99.7 H, MCH 32.1 H , MCHC 32.2, RDW 13.5, Plt Count 161, MPV 7.1 L, Neut % (Auto) 91.9 H, Lymph % (Auto) 2.7 L, [place] % (Auto) 4.8, Eos % (Auto) 0.2, Baso % (Auto) 0.5, Neut # (Auto) 9.9 H, Lymph # (Auto) 0.3 L, [place] # (Auto) 0.5, Eos # (Auto) 0.0, Baso # (Auto) 0.1 I & O for Last 24 hours: Intake & Output 03/04/18 03/05/18 03/06/18 03/07/18 23:59 23:59 23:59 23:59 Intake Total 975 / 975 1509 / 1509 600 / 600 240 / 240 Output Total 900 / 900 600 / 600 300 / 300 700 / 700 Balance 75 / 75 909 / 909 300 / 300 -460 / -460 Weight 50.944 kg 51.766 kg 53.155 kg 52.674 kg Microbiology Reports for the Last 24 Hours: Microbiology 03/05/18 10:43 Sputum - Expectorated Sputum Gram Stain - Final 03/05/18 10:43 Sputum - Expectorated Sputum Sputum Culture - Preliminary Assessment and Plan (1) Acute on chronic respiratory failure with hypoxemia Current visit: Yes Status: Acute Category: Medical Code(s): J96.21 - Acute and chronic respiratory failure with hypoxia (2) Community acquired pneumonia Current visit: Yes Status: Acute Qualifiers: Laterality: right Lung location: lower lobe of lung Qualified Code(s): J18.1 - Lobar pneumonia, unspecified organism Category: Medical Code(s): J18.9 - Pneumonia, unspecified organism (3) COPD (chronic obstructive pulmonary disease) Current visit: No Status: Chronic Qualifiers: COPD type: unspecified COPD Qualified Code(s): J44.9 - Chronic obstructive pulmonary disease, unspecified Category: Medical Code(s): J44.9 - Chronic obstructive pulmonary disease, unspecified (4) Cachexia Current visit: No Status: Chronic Category: Medical Code(s): R64 - Cachexia (5) Sepsis Current visit: Yes Status: Acute Qualifiers: Sepsis type: sepsis due to unspecified organism Qualified Code(s): A41.9 - Sepsis, unspecified organism Category: Medical Code(s): A41.9 - Sepsis, unspecified organism The patient's infection will respond to the chosen ABx?: Yes Is the patient receiving the right drug, dose, and route?: Yes Could a more targeted ABx be ordered?: No (CX PENDING)
[2018-03-07 08:00] LABS: Anion Gap 6.3 mEq/L (5-15); Calcium 8.5 mg/dL (8.5-10.1); Potassium 4.3 mmoL/L (3.5-5.1)
[2018-03-07 09:04] LABS: Lymphocytes % 4 % (10-50); Monocytes % 4 % (2-9); Neutrophils % 92 % (42-76); RBC Morphology Normal; Total Cells Counted 100
--- NOTE | 2018-03-07 09:31 | Progress Note ---
Internal Medicine - PN: Subj *Date: 03/07/18 *Time: 09:25 Interval history: Stable overnight. Got up and walked yesterday with nursing out in the [place] a little bit. Still feels quite weak. At baseline oxygen requirement. Remains afebrile, without nausea or vomiting, rash, syncope. Hemodynamically stable. Tolerating p.o. intake. Does complain of some poor sleep Exam Vital signs and Labs for Last 24 Hours: Temp Pulse Resp BP Pulse Ox 98.6 F 88 18 138/86 95 03/07/18 07:54 03/07/18 07:54 03/07/18 07:54 03/07/18 07:54 03/07/18 07:54 Laboratory Results - last 24 hr 03/07/18 07:25: WBC 10.8, RBC 4.03 L, Hgb 12.9, Hct 40.1, MCV 99.7 H, MCH 32.1 H , MCHC 32.2, RDW 13.5, Plt Count 161, MPV 7.1 L, Neut % (Auto) 91.9 H, Lymph % (Auto) 2.7 L, [place] % (Auto) 4.8, Eos % (Auto) 0.2, Baso % (Auto) 0.5, Neut # (Auto) 9.9 H, Lymph # (Auto) 0.3 L, [place] # (Auto) 0.5, Eos # (Auto) 0.0, Baso # (Auto) 0.1, Total Counted 100, Neutrophils % (Manual) 92 H, Lymphocytes % (Manual) 4 L, Monocytes % (Manual) 4, Platelet Estimate Normal, RBC Morphology Normal 03/07/18 07:25: Sodium 139, Potassium 4.3, Chloride 103, Carbon Dioxide 34 H, Anion Gap 6.3, BUN 16, Creatinine 0.55, Estimated Creat Clear 34, Estimated GFR 105, Est GFR ( Amer) 127, Glucose 159 H, Calcium 8.5 I & O for Last 24 hours: Intake & Output 03/04/18 03/05/18 03/06/18 03/07/18 23:59 23:59 23:59 23:59 Intake Total 975 / 975 1509 / 1509 600 / 600 240 / 240 Output Total 900 / 900 600 / 600 300 / 300 700 / 700 Balance 75 / 75 909 / 909 300 / 300 -460 / -460 Weight 50.944 kg 51.766 kg 53.155 kg 52.674 kg Microbiology Reports for the Last 24 Hours: Microbiology 03/05/18 10:43 Sputum - Expectorated Sputum Gram Stain - Final 03/05/18 10:43 Sputum - Expectorated Sputum Sputum Culture - Preliminary Narrative: Chronically ill cachectic, frail, elderly lady on baseline nasal cannula Shortness of breath at baseline, still has some faint crackles in right lower lobe,, no accessory muscle use Abdomen soft, heart regular Alert and oriented to person and place No edema Assessment and Plan (1) Acute on chronic respiratory failure with hypoxemia Current visit: Yes Status: Acute Category: Medical Code(s): J96.21 - Acute and chronic respiratory failure with hypoxia (2) Community acquired pneumonia Current visit: Yes Status: Acute Qualifiers: Laterality: right Lung location: lower lobe of lung Qualified Code(s): J18.1 - Lobar pneumonia, unspecified organism Category: Medical Code(s): J18.9 - Pneumonia, unspecified organism (3) COPD (chronic obstructive pulmonary disease) Current visit: No Status: Chronic Qualifiers: COPD type: unspecified COPD Qualified Code(s): J44.9 - Chronic obstructive pulmonary disease, unspecified Category: Medical Code(s): J44.9 - Chronic obstructive pulmonary disease, unspecified (4) Cachexia Current visit: No Status: Chronic Category: Medical Code(s): R64 - [place] (5) Sepsis Current visit: Yes Status: Acute Qualifiers: Sepsis type: sepsis due to unspecified organism Qualified Code(s): A41.9 - Sepsis, unspecified organism Category: Medical Code(s): A41.9 - Sepsis, unspecified organism - Assessment and plan all Dx Assessment and Plan for all problems:: Continue current treatment with antibiotics and nebulizers. Stable O2 requi rement. Patient planning to go home with hospice tomorrow. We will continue to get up and be active today and out of bed. Continue Roxanol for pain control and air hunger along with Xanax for anxiety.
[2018-03-08 07:29] LABS: Anion Gap 6.4 mEq/L (5-15); Calcium 8.3 mg/dL (8.5-10.1); Potassium 4.4 mmoL/L (3.5-5.1)
[2018-03-08 07:47] LABS: Basophils # 0.1 K/mm3 (0-0.2); Basophils % 0.8 % (0.1-2.0); Eosinophils % 0.1 % (0.1-12.0); Hematocrit 40.1 % (37.0-47.0); Hemoglobin 12.9 g/dL (12.2-16.2); Lymphocytes # 0.4 K/mm3 (0.7-4.5); Lymphocytes % 4.7 % (10-50); Mean Corpuscular HGB Conc 32.1 g/dL (31.8-35.4); Mean Corpuscular Hemoglobin 31.8 pg (27.0-31.2); Mean Platelet Volume 6.7 fl (7.4-10.4); Monocytes # 0.5 K/mm3 (0.1-1.0); Monocytes % 5.2 % (1.7-9.3); Neutrophils # 7.9 K/mm3 (1.8-7.8); Neutrophils % 89.2 % (37.0-80.0); Platelet Count 157 K/mm3 (142-424); Red Blood Count 4.05 M/mm3 (4.20-5.40); Red Cell Distribution Width 13.5 % (11.5-17.5); White Blood Count 8.8 K/mm3 (4.8-10.8)
[2018-03-08 09:03] LABS: Lymphocytes % 7 % (10-50); Monocytes % 5 % (2-9); Neutrophils % 79 % (42-76); Promyelocytes % 1 %; RBC Morphology Normal; Total Cells Counted 100
--- NOTE | 2018-03-08 12:39 | Discharge Summary ---
General - General Admission date:: 03/03/18 Discharge date: 03/08/18 HPI HPI: Ms. Lopez is a frail 87-year-old female with multiple comorbidities and severe COPD on 3 L of oxygen continuously at home. She presented to the ER at her family's request due to 1-2 days of fever, worsening respiratory distress, and some mild confusion. On initial presentation she was found to be hypoxemic with an elevated white count and concern for right-sided pneumonia. She was admitted to medicine for further management. Antibiotics and steroids were initiated in the ER. Patient complained of fatigue, shortness of breath, anxiousness. Denies chest pain, palpitations, headache, nausea vomiting or diarrhea. Hospital Course Hospital Course: Patient was admitted to acute care for acute on chronic respiratory failure, COPD exac and pneumonia. She was given IV antibiotics, steroids and duonebs. Shortness of breath improved some. Physical therapy recommended LTC placement for additional rehab. Patient refused. Options were discussed and patient elected to consult Hospice for her end-stage lung disease. After in-depth conversation with Hospice patient agreed to discharge home with Hospice care. Discharge home on Levaquin. Add risperdal at bedtime for increased agitation. See medication reconciliation for complete list. FU in the office with Dr. Antoine in one week or sooner PRN. Objective Vital signs: Temp Pulse Resp BP Pulse Ox 98.0 F 86 20 118/76 94 L 03/08/18 11:23 03/08/18 11:23 03/08/18 11:23 03/08/18 11:23 03/08/18 11:23 Narrative: Elderly, frail. No apparent distress. Rate and rhythm regular. No LE edema. Lung sounds with scattered wheezes. Abdomen soft, nontender. Alert and oriented x3 Results Labs on day of discharge: Labs from last 24 hours 03/08/18 03/08/18 07:15 07:15 WBC 8.8 RBC 4.05 L Hgb 12.9 Hct 40.1 MCV 99.0 MCH 31.8 H MCHC 32.1 RDW 13.5 Plt Count 157 MPV 6.7 L Neut % (Auto) 89.2 H Lymph % (Auto) 4.7 L [place] % (Auto) 5.2 Eos % (Auto) 0.1 Baso % (Auto) 0.8 Neut # (Auto) 7.9 H Lymph # (Auto) 0.4 L [place] # (Auto) 0.5 Eos # (Auto) 0.0 Baso # (Auto) 0.1 Total Counted 100 Neutrophils % (Manual) 79 H Lymphocytes % (Manual) 7 L Atypical Lymphs % 5.0 Monocytes % (Manual) 5 Metamyelocytes % 3.0 H Promyelocytes % 1 Platelet Estimate Normal RBC Morphology Normal Sodium 140 Potassium 4.4 Chloride 101 Carbon Dioxide 37 H Anion Gap 6.4 BUN 15 Creatinine 0.52 L Estimated Creat Clear 34 Estimated GFR 112 Est GFR ( Amer) 135 Glucose 152 H Calcium 8.3 L DS: Diagnosis - Discharge Diagnosis (1) Acute on chronic respiratory failure with hypoxemia Status: Acute (2) Community acquired pneumonia Status: Acute (3) COPD (chronic obstructive pulmonary disease) Status: Chronic (4) Cachexia Status: Chronic (5) Sepsis Status: Acute (6) Chronic diastolic (congestive) heart failure Status: Chronic Discharge Plan - Patient Discharge Instructions ACTIVITY: Continue current activity DIET: continue same diet Patient Instructions: DI for Chronic Obstructive Pulmonary Disease, DI for Pneumonia -- Adult - Follow up Plan Follow up with: Tyler Antoine MD [Primary Care Provider] - 03/14/18 Disposition: Hospice - Home Home Medications: Home Medications Medication Instructions Recorded Confirmed Type Furosemide [Furosemide 20mg Tab] 20 mg PO DAILY 03/16/17 03/03/18 History Levothyroxine Sodium 100 mcg PO DAILY 03/16/17 03/03/18 History [Levothyroxine 100mcg (0.1MG) Tab] Alendronate Sodium [Alendronate 35 mg PO WEEKLY 03/17/17 03/03/18 History 35mg Tablet] Metoprolol Succinate 50 mg PO DAILY 03/17/17 03/03/18 History Acetaminophen [Acetaminophen 325mg 650 mg PO Q6HP PRN tab 11/06/17 03/03/18 Rx tab] Docusate Sodium [Docusate Sodium 100 mg PO BIDP PRN cap 11/06/17 03/03/18 Rx 100mg Cap] Mag Hydrox/Aluminum Hyd/Simeth 30 ml PO Q2HP PRN oral.susp 11/07/17 03/03/18 Rx [Maalox 30ml UDC] ALPRAZolam [Xanax 0.5mg tab] 0.5 mg PO TIDP PRN 03/03/18 03/03/18 History Ascorbic Acid [Vitamin C] 500 mg PO DAILY 03/03/18 03/03/18 History Cholecalciferol (Vitamin D3) 2,000 unit PO DAILY 03/03/18 03/03/18 History [Vitamin D3] Esomeprazole Magnesium [Nexium] 20 mg PO DAILY 03/03/18 03/03/18 History Ipratropium/Albuterol Sulfate 3 ml IH Q4-6H 03/03/18 03/03/18 History [Duoneb 3mL neb] Tiotropium Br/Olodaterol HCl 2.5 mcg IH BID 03/03/18 03/03/18 History [Stiolto Respimat Inhal [place]] Aspirin [Aspirin 81mg EC Tab] 81 mg PO DAILY 03/04/18 03/04/18 History levoFLOXacin [Levaquin 750mg 750 mg PO Q48H #3 tab 03/08/18 Rx tablet] risperiDONE [Risperdal 0.25mg 0.25 mg PO HS 30 Days #30 tablet 03/08/18 Rx Tablet] Prescriptions/Medication Reconciliation: New levoFLOXacin [Levaquin 750mg tablet] 750 mg PO Q48H #3 tab risperiDONE [Risperdal 0.25mg Tablet] 0.25 mg PO HS 30 Days #30 tablet Continue Levothyroxine Sodium [Levothyroxine 100mcg (0.1MG) Tab] 100 mcg PO DAILY Metoprolol Succinate 50 mg PO DAILY Acetaminophen [Acetaminophen 325mg tab] 650 mg PO Q6HP PRN tab PRN Reason: Mild To Moderate Pain Docusate Sodium [Docusate Sodium 100mg Cap] 100 mg PO BIDP PRN cap PRN Reason: Constipation Mag Hydrox/Aluminum Hyd/Simeth [Maalox 30ml UDC] 30 ml PO Q2HP PRN oral.susp PRN Reason: Gi Upset ALPRAZolam [Xanax 0.5mg tab] 0.5 mg PO TIDP PRN PRN Reason: Anxiety Tiotropium Br/Olodaterol HCl [Stiolto Respimat Inhal [place]] 2.5 mcg IH BID Cholecalciferol (Vitamin D3) [Vitamin D3] 2,000 unit PO DAILY Aspirin [Aspirin 81mg EC Tab] 81 mg PO DAILY Furosemide [Furosemide 20mg Tab] 20 mg PO DAILY Alendronate Sodium [Alendronate 35mg Tablet] 35 mg PO WEEKLY Ipratropium/Albuterol Sulfate [Duoneb 3mL neb] 3 ml IH Q4-6H Ascorbic Acid [Vitamin C] 500 mg PO DAILY Esomeprazole Magnesium [Nexium] 20 mg PO DAILY Discontinued Azithromycin [Azithromycin 500mg Tab] 500 mg PO QODHS
== END 2018-03-08 14:20 | disposition hospice, home (50) | DRG 177 ==
LOC: 2ND 20:42 → ER 20:42 → OBSVTOIN 22:05 → 2ND 22:06
PROVIDERS: ADMIT Family Medicine; ATTEND Internal Medicine Adolescent Medicine
CPT/HCPCS: 36415; 71010; 71045; 80048; 80053; 81001; 82803; 82962; 83605; 83735; 84484; 85007; 85025; 87040; 87070; 87205; 87486; 87581; 87633; 87798; 92610; 93005; 94640; 94761; 96365; 96367; 96375; 97110; 97116; 97161; 99285; J1956